=== PATIENT | male | born 1965 | race Caucasian/White ===

== ENCOUNTER → 2019-10-17 16:03 | Outpatient (CLI) | payer OTHER, SELFPAY ==
--- NOTE | 2019-10-17 | DI.RAD.S_ITS ---
PROCEDURE: XR CHEST 2V INDICATIONS: DYSPNEA TECHNIQUE: 2 views of the chest were acquired. COMPARISON: [facility], , CHEST 2 VIEW, 11/13/2013, 15:53. FINDINGS: Surgical changes and devices: None. Lungs and pleura: Lungs are clear. No pleural effusions or pneumothorax. Mediastinum: Mediastinal contours are normal. Heart size is normal. Bones and chest wall: No suspicious bony abnormalities. Soft tissues appear unremarkable. IMPRESSION: No acute cardiopulmonary disease process. Dictated by: Lisa Steel MD, PhD on 10/17/2019 at 17:51 Approved by: Lisa Steel MD, PhD on 10/17/2019 at 17:52
== END ==
PROVIDERS: PCP Nurse Practitioner Family; Visit Provider Nurse Practitioner Family
DX: R06.00 Dyspnea, unspecified (principal); Z72.0 Tobacco use; D72.1 Eosinophilia
CPT/HCPCS: 71046

== ENCOUNTER → 2021-06-29 09:49 | Outpatient (CLI) | payer BC, SELFPAY ==
[2021-06-29 11:39] LABS: BUN Creatinine Ratio 14.8 (6-22); Blood Urea Nitrogen 17 mg/dL (9-20); Estimated Glomerular Filt Rate > 60.0 mL/min (>60)
== END ==
PROVIDERS: PCP Family Medicine; Referring Provider Urology; Visit Provider Urology
DX: Z87.448 Personal history of other diseases of urinary system (principal)
CPT/HCPCS: 36415; 82565; 84520

== ENCOUNTER → 2021-07-01 13:27 | Outpatient (CLI) | payer BC, SELFPAY ==
--- NOTE | 2021-07-01 | DI.CT.S_ITS ---
PROCEDURE: CT ABDOMEN PELVIS WO/W CON INDICATIONS: Personal history of other diseases of urinary system TECHNIQUE: Optional 5 mm thick noncontrast images acquired from the diaphragm to the symphysis pubis. After the administration of intravenous contrast, 5 mm thick images acquired from the diaphragm to the symphysis pubis after a 10-minute delay. 2 mm thick coronal and sagittal reformats were then performed of the kidneys and ureters. For radiation dose reduction, the following was used: automated exposure control, adjustment of mA and/or kV according to patient size. COMPARISON: None. FINDINGS: Image quality: Excellent. Lung bases: Lung bases are clear. Heart size is normal. Urinary system: The patient has a horseshoe kidney. There is a 3.3 x 1.8 cm cystic lesion at the junction of both lower pole moieties. 1.3 cm and 1.4 cm cortical cysts are present in the upper to midpole of the left kidney, and subcentimeter cysts are present in the cortex of the right kidney. No definite solid masses. There is no hydronephrosis. A 1.2 x 0.6 cm stone is present in the right renal pelvis. Punctate stones are seen in both lower pole moieties. No hydroureter or ureteral calcifications. Decompressed urinary bladder is normal without stone. Other solid organs: Mild hepatomegaly and moderate to significant hepatic steatosis with sparing in the gallbladder fossa. The gallbladder is decompressed. No adrenal nodules. Normal size spleen. Normal pancreas. No biliary dilatation. Peritoneum and bowel: Diverticulosis throughout the sigmoid colon and occasionally throughout the remainder of the colon. There is a normal appendix. Stomach and bowel loops appear normal. No mesenteric masses. Nodes and vessels: Normal caliber vessels. No retroperitoneal adenopathy. Abdominal wall: No ventral hernias. Pelvis: No pathologic free pelvic fluid. No inguinal hernias or adenopathy. The prostate gland is normal size. Bones: Degenerative endplate changes in the thoracic spine and prominent anterior endplate spurring at the L5-S1 level in the lumbar spine. Moderate to severe right greater than left degenerative changes in the hip joints. IMPRESSION: 1. 1.2 x 0.6 cm nonobstructing calcification within the right renal pelvis. 2. Horseshoe kidney morphology with several small cortical cyst present. 3. Nonobstructing punctate lower pole calcifications bilaterally. 4. Hepatomegaly and hepatic steatosis. 5. Diverticulosis. 6. Hip joint degeneration. Progression on the right since the prior study. Dictated by: Mona Augustine M.D. on 07/01/2021 at 15:48 Approved by: Mona Augustine M.D. on 07/01/2021 at 16:27
== END ==
PROVIDERS: PCP Family Medicine; Referring Provider Urology; Visit Provider Urology
DX: N20.0 Calculus of kidney (principal); Q63.1 Lobulated, fused and horseshoe kidney; N28.1 Cyst of kidney, acquired; K76.0 Fatty (change of) liver, not elsewhere classified; M16.0 Bilateral primary osteoarthritis of hip; K57.30 Diverticulosis of large intestine without perforation or abscess without bleeding; Z87.448 Personal history of other diseases of urinary system
CPT/HCPCS: 74178; Q9967

== ENCOUNTER 2021-11-07 09:41 | Emergency (ER) | payer BC, SELFPAY ==
[2021-11-07] VITALS (9 sets, daily range): BP systolic 150–170; BP diastolic 67–77; PULSE 86–97; RESP 16; TEMP 37.8; O2SAT 92–95; BMI 36.6
--- NOTE | 2021-11-07 10:02 | DI.RAD.S_ITS ---
PROCEDURE: XR CHEST 1V INDICATIONS: suspected sepsis TECHNIQUE: One view of the chest was acquired. COMPARISON: [facility], CR, XR CHEST 2V, 10/17/2019, 16:20. FINDINGS: Surgical changes and devices: None. Lungs and pleura: Lungs are clear. No pleural effusions or pneumothorax. Mediastinum: Mediastinal contours appear normal. Heart size is normal. Bones and chest wall: No suspicious bony lesions. Overlying soft tissues appear unremarkable. IMPRESSION: No acute process. Dictated by: Ludmila Shaw M.D. on 11/07/2021 at 9:42 Approved by: Ludmila Shaw M.D. on 11/07/2021 at 9:42
[2021-11-07] MEDS: SODIUM CHLORIDE 0.9% 1,000 ML 1000 ML IV (10:10)
[2021-11-07 10:15] LABS: Add Manual Diff / Slide Review NO; Basophils Absolute Auto 100 /uL (0-100); Basophils Percent Auto 0.7 % (0-2); Eosinophils Absolute Auto 0 /uL (0-450); Hematocrit 38.6 % (41-53); Hemoglobin 13.1 g/dL (13.5-17.5); Lymphocytes Absolute Auto 1200 /uL (1100-4500); Lymphocytes Percent Auto 6.4 % (25-40); Mean Corpuscular HGB Conc 33.9 % (30-36); Mean Corpuscular Hemoglobin 29.8 PG (26-34); Mean Corpuscular Volume 88.1 fL (80-100); Monocytes Absolute Auto 1500 /uL (0-900); Monocytes Percent Auto 7.9 % (3-14); Neutrophils Absolute Auto 15800 /uL (1500-7000); Platelet Count 278 X10^3/uL (150-400); Red Blood Cell Count 4.38 X10^6/uL (4.5-5.9); Red Cell Distribution Width 12.8 % (11.6-14.8); White Blood Cell Count 18.6 X10^3/uL (4.5-11.0)
[2021-11-07 10:24] LABS: RBC Urine 10-30/HPF (0-5/HPF); Squamous Epithelial Cell Urine 0-1 /HPF (0-5/HPF); WBC Urine 10-30/HPF (0-5/HPF)
[2021-11-07 10:26] LABS: Lactate (Lactic Acid) 1.4 mmol/L (0.7-2.1)
[2021-11-07 10:27] LABS: Alanine Aminotransferase 27 IU/L (<50); Albumin 4.4 g/dL (3.5-5.0); Albumin Globulin Ratio 1.3 (1.0-2.8); Alkaline Phosphatase 53 U/L (38-126); Aspartate Aminotransferase 28 IU/L (17-59); BUN Creatinine Ratio 9.7 (6-22); Bilirubin Total 0.6 mg/dL (0.2-1.3); Blood Urea Nitrogen 14 mg/dL (9-20); Calcium 9.1 mg/dL (8.4-10.2); Carbon Dioxide 21 mmol/L (22-32); Chloride 95 mmol/L (98-107); Estimated Glomerular Filt Rate 50.6 mL/min (>60); Globulin 3.4 g/dL (1.7-4.1); Glucose 162 mg/dL (70-100); HEMOLYSIS < 15 (0-50); Lipase 23 U/L (23-300); Potassium 3.9 mmol/L (3.4-5.1); Sodium 126 mmol/L (137-145); Total Protein 7.8 g/dL (6.3-8.2)
--- NOTE | 2021-11-07 10:34 | ED_ITS ---
HPI - Male Genitourinary General Chief complaint: Urogenital-Male Stated complaint: Kidney infection post surgery 10/28 Time Seen by Provider: 11/07/21 09:50 Source: patient Mode of arrival: Ambulatory History of Present Illness HPI Narrative: The patient underwent lithotripsy for right kidney stone 10/28/2021. A right ureter stent is in place. The patient developed right flank pain, abdominal pain, with nausea vomiting 3 days ago. He has had fever for about 2 days. He has dysuria. He denies hematuria. He has no URI symptoms. He has no sore throat. He has no cough or dyspnea. Along with nephrolithiasis, he has comorbidities of type 2 diabetes and prostate disease. Related Data Previous Rx's Medication Instructions Recorded ketorolac 10 mg tablet 10 mg PO Q8HP PRN #12 tab 11/01/16 oxycodone 5 mg tablet 5 mg PO Q6HP PRN #12 tab 11/01/16 sulfamethoxazole 800 1 tab PO Q12H 10 Days #20 tab 11/07/21 mg-trimethoprim 160 mg tablet Allergies Allergy/AdvReac Type Severity Reaction Status Date / Time Penicillins Allergy Mild RASH Verified 11/07/21 09:49 hydrocodone AdvReac Nausea Verified 11/07/21 09:50 tape Allergy Mild itchy/rash Uncoded 03/08/18 12:57 Review of Systems Constitutional Constitutional: Reports body ache(s), Denies chills, Reports fever(s), Denies headache(s) and Reports malaise ENT Ears, Nose, Mouth, and Throat: Denies dizziness, Denies headache(s) and Denies sore throat Cardiovascular Cardiovascular: Denies chest pain, Denies syncope, Denies rapid heart rate and Denies dyspnea Respiratory Respiratory: Denies cough and Denies dyspnea Gastrointestinal Gastrointestinal: Reports as per HPI Genitourinary Genitourinary: Reports as per HPI Musculoskeletal Musculoskeletal: Reports back pain and Reports myalgias Integumentary/Breasts Skin/Breast: Denies lesions and Denies rash Neurologic Neurologic: Denies confusion, Denies dizziness, Denies syncope and Denies headache(s) Psychiatric Psychiatric: Denies confusion and Denies depression Endocrine Endocrine: Denies polydipsia and Denies polyuria Hematologic/Lymphatic On Anticoagulants: No Patient History Medical History Controlled type 2 diabetes mellitus (01/13/16) Hyperplastic colonic polyp (07/01/14) Nephrolithiasis Obesity (10/27/11) Prostate hypertrophy (04/24/14) Smoker (10/27/11) Surgical History Status post colonoscopy (06/27/14) Status post discectomy Family History Brother Hyperlipidemia Alcohol abuse Father Cancer of prostate CAD (coronary artery disease) Pacemaker Ulcer Mother Smoker CAD (coronary artery disease) Social History Smoking Status: Current every day smoker Smoking Status: Current every day smoker alcohol intake frequency: holidays/special occasions only Substance Use Type: does not use Exam Initial Vital Signs Initial Vital Signs: Vital Signs Temperature 100.1 F H 11/07/21 09:48 Pulse Rate 97 H 11/07/21 09:48 Respiratory Rate 16 11/07/21 09:48 Blood Pressure 170/77 H 11/07/21 09:48 Pulse Oximetry 95 11/07/21 09:48 Const General: cooperative, well developed, well groomed and ill appearing [facility] Head: normocephalic and atraumatic Face and sinus: normal facial exam and sinuses nontender Throat: posterior oropharynx normal Eyes General: appearance normal, both eyes and all related structures Pupils: PERRL EOM: EOM intact bilaterally Neck Neck: full ROM and No lymphadenopathy Chest Chest: normal inspection of the chest Resp Auscultation: clear to auscultation bilaterally Cardio Rate: regular rate Rhythm: regular rhythm Heart Sounds: S1 normal, S2 normal, no murmurs and no rubs GI Inspection: obesity Palpation: soft, No mass and No tender Auscultation: normal bowel sounds Back/Spine/Pelvis Back: CVA tenderness right Skin General: no rashes or lesions noted Neuro General: patient alert, patient oriented x3 and no focal motor deficits Extrem General: normal to inspection, no pedal edema and no calf tenderness Course Course Course Narrative: The patient has a urinary tract infection with the stent in place. He has fever with right CVAT. He was given IV Levaquin. He is given IV fluids. He is feeling much better the time of discharge. Urine cultures pending. He was discharged on Septra DS. He has follow-up with Urology in about 10 days. Orders Ordered: ED Orders 11/07/21 09:55 Urine Culture Stat Urine Microscopic Stat 11/07/21 10:00 Complete Blood Count AUTO DIFF Stat Comprehensive Metabolic Panel Stat Lactate (Lactic Acid) Stat Lipase Stat Procalcitonin Stat 11/07/21 10:02 XR chest 1V Stat RT Consult Eval and Treat NOW 11/07/21 10:25 Blood Culture Stat Discontinued Medications Hydromorphone HCl (Hydromorphone 1 Mg Inj) 1 mg IV NOW ONE Stop: 11/07/21 10:33 Last Admin: 11/07/21 10:40 Dose: 1 mg Documented by: DARRON Sodium Chloride (Normal Saline 0.9%) 1,000 mls @ 1,000 mls/hr IV BOLUS ONE Stop: 11/07/21 11:01 Last Infusion: 11/07/21 11:36 Dose: 0 mls/hr Documented by: Admin: 11/07/21 10:10 Dose: 1,000 mls/hr Documented by: ANIBAL Levofloxacin (Levaquin) 500 mg in 100 mls @ 100 mls/hr IV NOW ONE Stop: 11/07/21 11:31 Last Infusion: 11/07/21 12:00 Dose: 0 mls/hr Documented by: Admin: 11/07/21 10:40 Dose: 100 mls/hr Documented by: DARRON Ondansetron HCl (Ondansetron 4 Mg/2 Ml Inj) 4 mg IV NOW ONE Stop: 11/07/21 10:33 Last Admin: 11/07/21 10:40 Dose: 4 mg Documented by: DARRON Vital Signs Vital signs: Vital Signs - 8 hr 11/07/21 09:48 11/07/21 10:48 11/07/21 10:51 Temperature 100.1 F H Pulse Rate 97 H 93 H 93 H Respiratory Rate 16 Blood Pressure 170/77 H 156/69 H Pulse Oximetry 95 95 93 11/07/21 11:00 11/07/21 11:30 11/07/21 12:00 Temperature Pulse Rate 88 86 90 Respiratory Rate Blood Pressure Pulse Oximetry 11/07/21 12:30 11/07/21 13:00 11/07/21 13:50 Temperature 100.0 F H Pulse Rate 86 87 Respiratory Rate Blood Pressure 150/67 H Pulse Oximetry 93 92 MDM - Male Genitourinary Lab Data Result diagrams: 11/07/21 10:00 11/07/21 10:00 Labs: Lab Results 11/07/21 11/07/21 11/07/21 Range/Units 09:55 10:00 10:00 WBC 18.6 H (4.5-11.0) X10^3/uL RBC 4.38 L (4.5-5.9) X10^6/uL Hgb 13.1 L (13.5-17.5) g/dL Hct 38.6 L (41-53) % MCV 88.1 (80-100) fL MCH 29.8 (26-34) PG MCHC 33.9 (30-36) % RDW 12.8 (11.6-14.8) % Plt Count 278 (150-400) X10^3/uL Neut % (Auto) 85.0 H (50-75) % Lymph % (Auto) 6.4 L (25-40) % [place] % (Auto) 7.9 (3-14) % Eos % (Auto) 0.0 L (2-4) % Baso % (Auto) 0.7 (0-2) % Neut # (Auto) 90964 H (9467-4294) /uL Lymph # (Auto) 1200 (2443-1830) /uL [place] # (Auto) 1500 H (0-900) /uL Eos # (Auto) 0 (0-450) /uL Baso # (Auto) 100 (0-100) /uL Sodium 126 L (137-145) mmol/L Potassium 3.9 (3.4-5.1) mmol/L Chloride 95 L (98-107) mmol/L Carbon Dioxide 21 L (22-32) mmol/L BUN 14 (9-20) mg/dL Creatinine 1.44 H (0.66-1.25) mg/dL Estimated GFR 50.6 L (>60) mL/min BUN/Creatinine Ratio 9.7 (6-22) Glucose 162 H (70-100) mg/dL Lactate (0.7-2.1) mmol/L Calcium 9.1 (8.4-10.2) mg/dL Total Bilirubin 0.6 (0.2-1.3) mg/dL AST 28 (17-59) IU/L ALT 27 (<50) IU/L Alkaline Phosphatase 53 (38-126) U/L Total Protein 7.8 (6.3-8.2) g/dL Albumin 4.4 (3.5-5.0) g/dL Globulin 3.4 (1.7-4.1) g/dL Albumin/Globulin Ratio 1.3 (1.0-2.8) Lipase 23 (23-300) U/L Procalcitonin 2.63 H (<0.5) ng/mL Urine RBC 10-30/hpf H (0-5/HPF) Urine WBC 10-30/hpf H (0-5/HPF) Ur Squamous Epith Cells 0-1 /hpf (0-5/HPF) Urine Bacteria Moderate (10-30) H (None) Ur Culture Indicated? Specimen cultured 11/07/21 Range/Units 10:00 WBC (4.5-11.0) X10^3/uL RBC (4.5-5.9) X10^6/uL Hgb (13.5-17.5) g/dL Hct (41-53) % MCV (80-100) fL MCH (26-34) PG MCHC (30-36) % RDW (11.6-14.8) % Plt Count (150-400) X10^3/uL Neut % (Auto) (50-75) % Lymph % (Auto) (25-40) % [place] % (Auto) (3-14) % Eos % (Auto) (2-4) % Baso % (Auto) (0-2) % Neut # (Auto) (1712-8496) /uL Lymph # (Auto) (8167-5498) /uL [place] # (Auto) (0-900) /uL Eos # (Auto) (0-450) /uL Baso # (Auto) (0-100) /uL Sodium (137-145) mmol/L Potassium (3.4-5.1) mmol/L Chloride (98-107) mmol/L Carbon Dioxide (22-32) mmol/L BUN (9-20) mg/dL Creatinine (0.66-1.25) mg/dL Estimated GFR (>60) mL/min BUN/Creatinine Ratio (6-22) Glucose (70-100) mg/dL Lactate 1.4 (0.7-2.1) mmol/L Calcium (8.4-10.2) mg/dL Total Bilirubin (0.2-1.3) mg/dL AST (17-59) IU/L ALT (<50) IU/L Alkaline Phosphatase (38-126) U/L Total Protein (6.3-8.2) g/dL Albumin (3.5-5.0) g/dL Globulin (1.7-4.1) g/dL Albumin/Globulin Ratio (1.0-2.8) Lipase (23-300) U/L Procalcitonin (<0.5) ng/mL Urine RBC (0-5/HPF) Urine WBC (0-5/HPF) Ur Squamous Epith Cells (0-5/HPF) Urine Bacteria (None) Ur Culture Indicated? Urine Dip Bedside Urine Glucose Negative Bedside Urine Bilirubin - Negative Bedside Urine Ketone - Negative Urine Specific [place] 1.030 Bedside Urine Occult Blood +++ Bedside Urine pH 6.0 Bedside Urine Protein ++ 100 Bedside Urine Urobilinogen 0.2 Bedside Urine Nitrite - Negative Bedside Urine Leukocytes + 70 Esterase Imaging Data Chest x-ray: Radiologist's Impression: No acute process Discharge Plan Departure Patient Disposition: Home Clinical Impression: Acute pyelonephritis, Controlled type 2 diabetes mellitus, Renal insufficiency Instructions: DI for Kidney Infection Activity Restrictions/Additional Instructions: Septra DS 2 times daily for 10 days. Be sure you are drinking plenty of fluids. Follow-up with your doctor as scheduled. Return here for increasing pain or fever. Prescriptions: New sulfamethoxazole-trimethoprim 800-160 mg tablet 1 tab PO Q12H 10 Days Qty: 20 0RF No Action ketorolac 10 MG tablet 10 mg PO Q8HP PRNQty: 12 0RF oxycodone 5 MG tablet 5 mg PO Q6HP PRNQty: 12 0RF Referrals: Roby Zamora MD [Primary Care Provider] -
[2021-11-07] MEDS: HYDROMORPHONE 1 MG INJ IV (10:40)
[2021-11-07] MEDS: levoFLOXacin 500 MG/100 ML PIGGYBACK 100 MG IV (10:40)
[2021-11-07] MEDS: ONDANSETRON 4 MG/2 ML INJ IV (10:40)
[2021-11-07 10:44] LABS: Procalcitonin 2.63 ng/mL (<0.5)
[2021-11-07 10:49] LABS: Bacteria Urine Moderate (10-30); Culture Indicated Urine Specimen Cultured
== END 2021-11-07 13:55 | disposition home or self-care (01) ==
PROVIDERS: Emergency Provider Emergency Medicine; PCP Family Medicine
DX: N10 Acute pyelonephritis (principal); E11.9 Type 2 diabetes mellitus without complications; N28.9 Disorder of kidney and ureter, unspecified; F17.200 Nicotine dependence, unspecified, uncomplicated
CPT/HCPCS: 36415; 71045; 80053; 81003; 81015; 83605; 83690; 84145; 85025; 87040; 87077; 87086; 99284; J1170; J1956; J2405

== ENCOUNTER 2021-11-08 10:07 | Inpatient (IN) | payer OTHER, SELFPAY ==
[2021-11-08] VITALS (17 sets, daily range): BP systolic 110–148; BP diastolic 49–90; PULSE 18–93; RESP 16–24; TEMP 36–39.4; O2SAT 91–98; BMI 36.6
[2021-11-08 10:59] LABS: Add Manual Diff / Slide Review NO; Basophils Absolute Auto 100 /uL (0-100); Basophils Percent Auto 0.7 % (0-2); Eosinophils Absolute Auto 0 /uL (0-450); Hematocrit 36.5 % (41-53); Hemoglobin 12.7 g/dL (13.5-17.5); Lymphocytes Absolute Auto 1100 /uL (1100-4500); Lymphocytes Percent Auto 5.4 % (25-40); Mean Corpuscular HGB Conc 34.8 % (30-36); Mean Corpuscular Hemoglobin 30.3 PG (26-34); Monocytes Absolute Auto 1800 /uL (0-900); Monocytes Percent Auto 8.9 % (3-14); Neutrophils Absolute Auto 17000 /uL (1500-7000); Platelet Count 241 X10^3/uL (150-400); Red Cell Distribution Width 12.8 % (11.6-14.8)
[2021-11-08] MEDS: ONDANSETRON 4 MG/2 ML INJ IV ×3 (11:03→18:05)
[2021-11-08 11:14] LABS: Alanine Aminotransferase 32 IU/L (<50); Albumin 3.9 g/dL (3.5-5.0); Albumin Globulin Ratio 1.1 (1.0-2.8); Alkaline Phosphatase 48 U/L (38-126); Aspartate Aminotransferase 41 IU/L (17-59); Bilirubin Total 0.7 mg/dL (0.2-1.3); Blood Urea Nitrogen 15 mg/dL (9-20); Calcium 8.8 mg/dL (8.4-10.2); Carbon Dioxide 23 mmol/L (22-32); Chloride 89 mmol/L (98-107); Estimated Glomerular Filt Rate 48.2 mL/min (>60); Globulin 3.5 g/dL (1.7-4.1); Glucose 158 mg/dL (70-100); HEMOLYSIS < 15 (0-50); Lipase 19 U/L (23-300); Sodium 121 mmol/L (137-145); Total Protein 7.4 g/dL (6.3-8.2)
--- NOTE | 2021-11-08 11:14 | DI.CT.S_ITS ---
PROCEDURE: CT KIDNEY URETER BLADDER (KUB) INDICATIONS: Probable pyelonephritis. Horseshoe kidney. TECHNIQUE: Axial sections were acquired from the lung bases to the pubic symphysis. Coronal and sagittal reformats were performed. For radiation dose reduction, the following was used: automated exposure control, adjustment of mA and/or kV according to patient size. COMPARISON: [facility], CT, CT ABDOMEN PELVIS WO/W CON, 07/01/2021, 13:32. [facility], CT, KIDNEY/ URETER/BLADDER, 11/01/2016, 19:25. FINDINGS: Image quality: Excellent. Lung bases: Unremarkable. Heart: No significant findings. URINARY: Horseshoe kidney is present, as before. There is new moderate fat stranding surrounding the right moiety of the horseshoe kidney. Multiple nonobstructing calculi within the inferior aspects of the bilateral renal moieties. Right ureteral stent is present, which demonstrates a redundant loop within the right renal moiety. Bladder: Normal wall thickness. No stones. ABDOMEN: Liver: Liver is enlarged and demonstrates diffusely increased echogenicity, as before. Gallbladder: Unremarkable. Biliary ducts: Unremarkable. Pancreas: Unremarkable. Spleen: Unremarkable. Adrenal Glands: Unremarkable. Stomach and Bowel: Stomach, small bowel loops, and colon are unremarkable. Normal appendix. Peritoneum: No abnormal intraperitoneal fluid. No free air. Ventral Wall: No hernia. Abdominal Nodes: No enlarged retroperitoneal or mesenteric lymph nodes. Vessels: Aorta and inferior vena cava are normal in size. PELVIS: Pelvic Organs: Unremarkable. Pelvic Nodes: Unremarkable. Miscellaneous: No inguinal hernias are seen. Bones: Unremarkable. IMPRESSION: 1. Fat stranding surrounding the right moiety of the horseshoe kidney, possibly indicating infection. 2. Calculi within the bilateral renal moieties. 3. Hepatic steatosis. 4. Normal appendix. Dictated by: Ludmila Shaw M.D. on 11/08/2021 at 10:32 Approved by: Ludmila Shaw M.D. on 11/08/2021 at 10:35
--- NOTE | 2021-11-08 11:20 | ED_ITS ---
HPI - Abdominal Pain General Chief Complaint: Abdominal Pain Stated Complaint: Kidney infection Time Seen by Provider: 11/08/21 10:54 Source: patient Mode of arrival: Ambulatory Limitations: no limitations History of Present Illness HPI narrative: The patient underwent lithotripsy 12/18. He has a right ureter stent in place. He is diabetic. He has a history of kidney stones with stent in place. He has a horseshoe kidney. He was seen yesterday with abdominal pain, right back pain. I gave him IV Levaquin as well as pain medications. He was on notably better. He was discharged home. He apparently was doing well until about 7:00 p.m. last night when abdominal pain, nausea and vomiting returned. He complains of ongoing fever. In addition urinary complaints, chest x-ray was evaluated yesterday and was negative. Related Data Home Medications Medication Instructions Recorded Confirmed finasteride 5 mg tablet 5 mg PO BID 11/08/21 11/08/21 gabapentin 600 mg tablet 600 mg PO BID 11/08/21 11/08/21 glipizide 5 mg tablet, extended 5 mg PO DAILY 11/08/21 11/08/21 release 24 hr metformin 500 mg tablet,extended 500 mg PO BID 11/08/21 11/08/21 release 24 hr nortriptyline 25 mg capsule 25 mg PO BID 11/08/21 11/08/21 phenazopyridine 200 mg tablet 200 mg PO BID 11/08/21 11/08/21 tamsulosin 0.4 mg capsule 0.4 mg PO BID 11/08/21 11/08/21 Previous Rx's Medication Instructions Recorded ketorolac 10 mg tablet 10 mg PO Q8HP PRN #12 tab 11/01/16 oxycodone 5 mg tablet 5 mg PO Q6HP PRN #12 tab 11/01/16 sulfamethoxazole 800 1 tab PO Q12H 10 Days #20 tab 11/07/21 mg-trimethoprim 160 mg tablet Allergies Allergy/AdvReac Type Severity Reaction Status Date / Time Penicillins Allergy Mild RASH Verified 11/07/21 09:49 hydrocodone AdvReac Nausea Verified 11/07/21 09:50 tape Allergy Mild itchy/rash Uncoded 03/08/18 12:57 Review of Systems Constitutional Constitutional: Reports as per HPI, Reports body ache(s), Reports chills, Denies fatigue, Reports fever(s) and Denies headache(s) Eyes Eyes: Denies change in vision Comments: No eye complaints ENT Ears, Nose, Mouth, and Throat: Denies dizziness, Denies headache(s), Denies sinus pressure and Denies sore throat Cardiovascular Cardiovascular: Denies chest pain, Denies rapid heart rate and Denies dyspnea Respiratory Respiratory: Denies cough and Denies dyspnea Gastrointestinal Gastrointestinal: Reports abdominal pain, Denies constipation, Reports nausea and Reports vomiting Genitourinary Comments: Normal urine output. No hematuria. Musculoskeletal Musculoskeletal: Reports as per HPI and Reports back pain Integumentary/Breasts Skin/Breast: Denies lesions and Denies rash Neurologic Neurologic: Denies confusion, Denies dizziness and Denies headache(s) Psychiatric Psychiatric: Reports anxiety and Denies confusion Endocrine Endocrine: Denies fatigue Hematologic/Lymphatic On Anticoagulants: No Patient History Medical History Controlled type 2 diabetes mellitus (01/13/16) Hyperplastic colonic polyp (07/01/14) Nephrolithiasis Obesity (10/27/11) Prostate hypertrophy (04/24/14) Smoker (10/27/11) Surgical History Status post colonoscopy (06/27/14) Status post discectomy Family History Brother Hyperlipidemia Alcohol abuse Father Cancer of prostate CAD (coronary artery disease) Pacemaker Ulcer Mother Smoker CAD (coronary artery disease) Social History household members: spouse Smoking Status: Current every day smoker Smoking Status: Current every day smoker alcohol intake frequency: holidays/special occasions only Substance Use Type: does not use Exam Initial Vital Signs Initial Vital Signs: Vital Signs Pulse Rate 91 H 11/08/21 10:29 Pulse Oximetry 95 11/08/21 10:29 Const General: cooperative Orientation: Orientation (x3) Other: The patient is nontoxic, but appears uncomfortable. HENMT Head: normocephalic and atraumatic Throat: posterior oropharynx normal Eyes Conjunctivae: conjunctivae normal Sclera: sclerae normal Other: No icterus Neck Neck: full ROM and No lymphadenopathy Chest Chest: normal inspection of the chest Resp Effort & Inspection: normal respiratory effort Auscultation: clear to auscultation bilaterally Cardio Rate: regular rate Rhythm: regular rhythm Heart Sounds: S1 normal and S2 normal GI Inspection: obesity Palpation: soft, No guarding and No tender Auscultation: normal bowel sounds Other: Obese. No significant tenderness. No distension. No masses. Normal bowel sounds. Back/Spine/Pelvis Back: CVA tenderness right Skin General: no rashes or lesions noted Neuro General: patient alert, patient awake and patient oriented x3 Extrem General: normal to inspection, full ROM, no pedal edema and no calf tenderness Psych Mental Status: mental status grossly normal Course Course Course Narrative: Although urine cultures do not support urinary tract infection at this time, the patient's WBC count is increased to 20, higher than yesterday. CT revealed the horseshoe kidney, multiple stones, and the right ureter stent. There were also findings consistent with pyelonephritis. Levaquin was repeated. I discussed the case with the hospitalist, Dr. Lopez, she has accepted the patient on her service. Orders Ordered: ED Orders 11/08/21 10:38 Complete Blood Count AUTO DIFF Stat Comprehensive Metabolic Panel Stat Lipase Stat 11/08/21 10:45 EKG-12 Lead Stat 11/08/21 11:14 CT kidney ureter bladder (KUB) Stat 11/08/21 11:39 Urine Culture Stat Urine Microscopic Stat 11/08/21 11:49 COVID19 - ADMIT (DIRECTOR OF REAL ESTATE swab/PCR) Stat 11/08/21 12:20 Blood Culture Stat Lactate (Lactic Acid) Stat Discontinued Medications Hydromorphone HCl (Hydromorphone 1 Mg Inj) 1 mg IV NOW ONE Stop: 11/08/21 11:24 Last Admin: 11/08/21 11:50 Dose: 1 mg Documented by: KANG Sodium Chloride (Normal Saline 0.9%) 1,000 mls @ 1,000 mls/hr IV BOLUS ONE Stop: 11/08/21 12:13 Last Infusion: 11/08/21 12:43 Dose: 0 mls/hr Documented by: Admin: 11/08/21 11:21 Dose: 1,000 mls/hr Documented by: KANG Levofloxacin (Levaquin) 500 mg in 100 mls @ 100 mls/hr IV NOW ONE Stop: 11/08/21 13:07 Last Infusion: 11/08/21 13:36 Dose: 0 mls/hr Documented by: Admin: 11/08/21 12:14 Dose: 100 mls/hr Documented by: KANG Ondansetron HCl (Ondansetron 4 Mg/2 Ml Inj) 4 mg IV NOW ONE Stop: 11/08/21 10:46 Last Admin: 11/08/21 11:03 Dose: 4 mg Documented by: KANG Ondansetron HCl (Ondansetron 4 Mg/2 Ml Inj) 4 mg IV NOW ONE Stop: 11/08/21 11:24 Last Admin: 11/08/21 11:50 Dose: 4 mg Documented by: KANG Vital Signs Vital signs: Vital Signs - 8 hr 11/08/21 10:29 11/08/21 10:30 11/08/21 10:35 Temperature 98.9 F Pulse Rate 91 H 86 88 Respiratory Rate 18 Blood Pressure 122/58 L 125/58 L Pulse Oximetry 95 95 98 11/08/21 11:00 11/08/21 11:31 11/08/21 11:48 Temperature 98.9 F Pulse Rate 93 H 26 L 86 Respiratory Rate 24 21 Blood Pressure 116/63 120/55 L Pulse Oximetry 91 95 95 11/08/21 12:00 11/08/21 12:30 Temperature Pulse Rate 92 H 92 H Respiratory Rate 23 20 Blood Pressure 130/64 133/62 Pulse Oximetry 94 95 MDM - Abdominal Pain Lab Data Result diagrams: 11/08/21 10:38 11/08/21 10:38 Labs: Lab Results 11/08/21 11/08/21 11/08/21 Range/Units 10:38 10:38 11:39 WBC 20.0 H (4.5-11.0) X10^3/uL RBC 4.20 L (4.5-5.9) X10^6/uL Hgb 12.7 L (13.5-17.5) g/dL Hct 36.5 L (41-53) % MCV 87.0 (80-100) fL MCH 30.3 (26-34) PG MCHC 34.8 (30-36) % RDW 12.8 (11.6-14.8) % Plt Count 241 (150-400) X10^3/uL Neut % (Auto) 85.0 H (50-75) % Lymph % (Auto) 5.4 L (25-40) % [place] % (Auto) 8.9 (3-14) % Eos % (Auto) 0.0 L (2-4) % Baso % (Auto) 0.7 (0-2) % Neut # (Auto) 64679 H (6685-0935) /uL Lymph # (Auto) 1100 (1924-7016) /uL [place] # (Auto) 1800 H (0-900) /uL Eos # (Auto) 0 (0-450) /uL Baso # (Auto) 100 (0-100) /uL Sodium 121 L (137-145) mmol/L Potassium 4.0 (3.4-5.1) mmol/L Chloride 89 L (98-107) mmol/L Carbon Dioxide 23 (22-32) mmol/L BUN 15 (9-20) mg/dL Creatinine 1.50 H (0.66-1.25) mg/dL Estimated GFR 48.2 L (>60) mL/min BUN/Creatinine Ratio 10.0 (6-22) Glucose 158 H (70-100) mg/dL Lactate (0.7-2.1) mmol/L Calcium 8.8 (8.4-10.2) mg/dL Total Bilirubin 0.7 (0.2-1.3) mg/dL AST 41 (17-59) IU/L ALT 32 (<50) IU/L Alkaline Phosphatase 48 (38-126) U/L Total Protein 7.4 (6.3-8.2) g/dL Albumin 3.9 (3.5-5.0) g/dL Globulin 3.5 (1.7-4.1) g/dL Albumin/Globulin Ratio 1.1 (1.0-2.8) Lipase 19 L (23-300) U/L Urine RBC 1-5/hpf D (0-5/HPF) Urine WBC 10-30/hpf H (0-5/HPF) Ur Squamous Epith Cells 0-1 /hpf (0-5/HPF) Amorphous Sediment 1+ Urine Bacteria Few (2-10) H (None) Ur Culture Indicated? Culture not indicate SARS-CoV-2 (PCR) (Negative) 11/08/21 11/08/21 Range/Units 11:49 12:20 WBC (4.5-11.0) X10^3/uL RBC (4.5-5.9) X10^6/uL Hgb (13.5-17.5) g/dL Hct (41-53) % MCV (80-100) fL MCH (26-34) PG MCHC (30-36) % RDW (11.6-14.8) % Plt Count (150-400) X10^3/uL Neut % (Auto) (50-75) % Lymph % (Auto) (25-40) % [place] % (Auto) (3-14) % Eos % (Auto) (2-4) % Baso % (Auto) (0-2) % Neut # (Auto) (7984-8618) /uL Lymph # (Auto) (5791-4562) /uL [place] # (Auto) (0-900) /uL Eos # (Auto) (0-450) /uL Baso # (Auto) (0-100) /uL Sodium (137-145) mmol/L Potassium (3.4-5.1) mmol/L Chloride (98-107) mmol/L Carbon Dioxide (22-32) mmol/L BUN (9-20) mg/dL Creatinine (0.66-1.25) mg/dL Estimated GFR (>60) mL/min BUN/Creatinine Ratio (6-22) Glucose (70-100) mg/dL Lactate 0.7 (0.7-2.1) mmol/L Calcium (8.4-10.2) mg/dL Total Bilirubin (0.2-1.3) mg/dL AST (17-59) IU/L ALT (<50) IU/L Alkaline Phosphatase (38-126) U/L Total Protein (6.3-8.2) g/dL Albumin (3.5-5.0) g/dL Globulin (1.7-4.1) g/dL Albumin/Globulin Ratio (1.0-2.8) Lipase (23-300) U/L Urine RBC (0-5/HPF) Urine WBC (0-5/HPF) Ur Squamous Epith Cells (0-5/HPF) Amorphous Sediment Urine Bacteria (None) Ur Culture Indicated? SARS-CoV-2 (PCR) Negative (Negative) Point of care testing: Urine Dip Bedside Urine Glucose Negative Bedside Urine Bilirubin - Negative Bedside Urine Ketone +/- 5 Urine Specific [place] 1.015 Bedside Urine Occult Blood +++ Bedside Urine pH 6 Bedside Urine Protein ++ 100 Bedside Urine Urobilinogen - Negative Bedside Urine Nitrite - Negative Bedside Urine Leukocytes + 70 Esterase Imaging Data KUB CT: Radiologist's Impression: Launch?Image [address] [address] [address] Scan Report Signed Patient: Shaheed Negron MR#: [id number] : 1965 Acct:[id number] Age/Sex: 55 / M Date of Service: 11/08/21 Loc: ED Accession Number: [id number] ?? Procedure: CT kidney ureter bladder (KUB) Ordering Provider: Len Simpson MD PROCEDURE:? CT KIDNEY URETER BLADDER (KUB) ? INDICATIONS:? Probable pyelonephritis.? Horseshoe kidney. ? TECHNIQUE:? Axial sections were acquired from the lung bases to the pubic symphysis.? Coronal and sagittal reformats were performed.? For radiation dose reduction, the following was used: ?automated exposure control, adjustment of mA and/or kV according to patient size.? ? COMPARISON:? [facility], CT, CT ABDOMEN PELVIS WO/W CON, 07/01/2021, 13:32.? [facility], CT, KIDNEY/ URETER/BLADDER, 11/01/2016, 19:25. ? FINDINGS:? Image quality:? Excellent.? ? Lung bases:? Unremarkable.? ? Heart:? No significant findings. ? URINARY:? Horseshoe kidney is present, as before.? There is new moderate fat stranding surrounding the right moiety of the horseshoe kidney.? Multiple nonobstructing calculi within the inferior aspects of the bilateral renal moieties.? Right ureteral stent is present, which demonstrates a redundant loop within the right renal moiety. ? Bladder:? Normal wall thickness. No stones. ? ? ? ABDOMEN: Liver:? Liver is enlarged and demonstrates diffusely increased echogenicity, as before. Gallbladder:? Unremarkable.? ? Biliary ducts:? Unremarkable.? ? Pancreas:? Unremarkable.? ? Spleen:? Unremarkable.? ? Adrenal Glands:? Unremarkable.? ? ? Stomach and Bowel:? Stomach, small bowel loops, and colon are unremarkable.? Normal appendix. Peritoneum:? No abnormal intraperitoneal fluid.? No free air.? ? Ventral Wall: ? No hernia.? Abdominal Nodes:? No enlarged retroperitoneal or mesenteric lymph nodes.? Vessels:? Aorta and inferior vena cava are normal in size.? ? PELVIS: Pelvic Organs:? Unremarkable.? ? Pelvic Nodes: Unremarkable. Miscellaneous: No inguinal hernias are seen. ? ? ? Bones:? Unremarkable. ? IMPRESSION:? ? 1. Fat stranding surrounding the right moiety of the horseshoe kidney, possibly indicating infection. 2. Calculi within the bilateral renal moieties. 3. Hepatic steatosis. 4. Normal appendix. ? ? ? Dictated by: Ludmila Shaw M.D. on 11/08/2021 at 10:32 ? ? Approved by: Ludmila Shaw M.D. on 11/08/2021 at 10:35 ? ECG Data Attestation: I personally reviewed and interpreted this ECG as follows: (Normal sinus rhythm rate 94 beats per minute. Normal intervals. No ectopy. No acute ST T wave changes.) Critical Care Time Critical Care Time Critical Care Time: Yes Total Critical Care Time: 40 Attestation: Time includes initial assessment patient, review of his records, and review of Radiology, lab in EKG data. Multiple clinical decisions were made. The clinical situation discussed with the patient. The case was discussed with the admitting hospitalist. Discharge Plan Departure Patient Disposition: Admitted As Inpatient Clinical Impression: Acute pyelonephritis, Nephrolithiasis, Renal insufficiency, Controlled type 2 diabetes mellitus Admit Date/Time: 11/08/21 12:58 Admit Provider: Georgette Lopez
[2021-11-08] MEDS: SODIUM CHLORIDE 0.9% 1,000 ML 1000 ML IV (11:21)
[2021-11-08] MEDS: HYDROMORPHONE 1 MG INJ IV (11:50)
[2021-11-08 11:59] LABS: Amorphous Sediment Urine 1+; Bacteria Urine Few (2-10); RBC Urine 1-5/HPF (0-5/HPF); Squamous Epithelial Cell Urine 0-1 /HPF (0-5/HPF); WBC Urine 10-30/HPF (0-5/HPF)
[2021-11-08] MEDS: levoFLOXacin 500 MG/100 ML PIGGYBACK 100 MG IV (12:14)
[2021-11-08 12:44] LABS: Lactate (Lactic Acid) 0.7 mmol/L (0.7-2.1)
[2021-11-08 12:50] LABS: COVID19 - ADMIT (NP swab/PCR) Negative (Negative)
--- NOTE | 2021-11-08 16:40 | DI.US.S_ITS ---
PROCEDURE: US ABDOMEN LIMITED INDICATIONS: RIGHT UPPER QUADRANT PAIN TECHNIQUE: Real-time focused scanning was performed of the abdomen, with image documentation. COMPARISON: None. FINDINGS: Exam is limited by the patient body habitus and the degree of hepatic steatosis. Markedly increased hepatic parenchymal echogenicity with poor visualization of the deep field as a result of the sound attenuation by the liver. There is a cyst in the right hepatic lobe deep aspect measuring approximately 3 centimeters. Otherwise limited evaluation of the liver. The gallbladder is normally distended with no wall thickening or pericholecystic fluid. No sludge or gallstone identified. The pancreas and extrahepatic biliary ducts are not well seen due to the above limitations. IMPRESSION: Limited study due to body habitus and the severe degree of hepatic steatosis. Normal gallbladder. Dictated by: Austyn Boucher M.D. on 11/09/2021 at 8:41 Approved by: Austyn Boucher M.D. on 11/09/2021 at 8:43
--- NOTE | 2021-11-08 16:48 | PM.HP.1 ---
History of Present Illness History of Present Illness Date Patient Seen: 11/08/21 Time Patient Seen: 16:49 Chief complaint: Kidney infection Narrative: The patient is a 55-year-old male with a history of type 2 diabetes, nephrolithiasis, obesity, benign prostatic hypertrophy, who underwent lithotripsy with ureteral stent placement 11 days ago. Patient is known to have a horseshoe kidney. Presented to the emergency room yesterday with fever nausea vomiting and malaise. UA was positive. Patient was given levofloxacin in the emergency department and discharged home on oral antibiotics. He states he was well until last evening at 7:00 p.m. when he again developed nonproductive cough, nausea and vomiting, diarrhea, and abdominal pain. Patient reports it to having dark emesis, he also reports having black stool. He has been febrile to over 102. His reports he has had shaking chills. He has not been able to eat since Tuesday, 5 days prior to admission. The patient was evaluated in the emergency room. His white count is markedly elevated at 20, his creatinine has increased to 1.5 from his baseline, urine appears infected and has been sent for culture. Abdominal pelvic CT has been obtained, the results of which are as follows: 1. Fat stranding surrounding the right moiety of the horseshoe kidney, possibly indicating infection. 2. Calculi within the bilateral renal moieties. 3. Hepatic steatosis. 4. Normal appendix. Patient is admitted to the hospital for acute pyelonephritis Patient History Medical History Controlled type 2 diabetes mellitus (01/13/16) Hyperplastic colonic polyp (07/01/14) Nephrolithiasis Obesity (10/27/11) Prostate hypertrophy (04/24/14) Smoker (10/27/11) Surgical History Status post colonoscopy (06/27/14) Status post discectomy Family & Social History Family History Brother Hyperlipidemia Alcohol abuse Father Cancer of prostate CAD (coronary artery disease) Pacemaker Ulcer Mother Smoker CAD (coronary artery disease) Social History: household members spouse Prior Living Arrangements House Safety & Behavioral: Feels Safe in Current Yes Environment Been Physically Hurt or No Threatened By a Person Tobacco & Substance use: Smoking Status Current every day smoker alcohol intake frequency holiday/special occasion Substance Use Type marijuana Meds Home Medications and Allergies Home Medications Medication Instructions Recorded Confirmed Type ketorolac 10 mg tablet 10 mg PO Q8HP PRN #12 tab 11/01/16 11/08/21 Rx oxycodone 5 mg tablet 5 mg PO Q6HP PRN #12 tab 11/01/16 11/08/21 Rx sulfamethoxazole 800 1 tab PO Q12H 10 Days #20 tab 11/07/21 11/08/21 Rx mg-trimethoprim 160 mg tablet finasteride 5 mg tablet 5 mg PO BID 11/08/21 11/08/21 History gabapentin 600 mg tablet 600 mg PO BID 11/08/21 11/08/21 History glipizide 5 mg tablet, extended 5 mg PO DAILY 11/08/21 11/08/21 History release 24 hr metformin 500 mg tablet,extended 500 mg PO BID 11/08/21 11/08/21 History release 24 hr nortriptyline 25 mg capsule 25 mg PO BID 11/08/21 11/08/21 History phenazopyridine 200 mg tablet 200 mg PO BID 11/08/21 11/08/21 History tamsulosin 0.4 mg capsule 0.4 mg PO BID 11/08/21 11/08/21 History Allergies Allergy/AdvReac Type Severity Reaction Status Date / Time adhesive tape Allergy Mild ITCHY/RASH Verified 11/08/21 16:45 Penicillins Allergy Mild RASH Verified 11/07/21 09:49 hydrocodone AdvReac Nausea Verified 11/07/21 09:50 Review of Systems Review of Systems Narrative: 10 point review of system negative except as above Exam Vital Signs (past 8 hours): - 11/08/21 10:29 11/08/21 10:30 11/08/21 10:35 Temperature 98.9 F Pulse Rate 91 H 86 88 Respiratory Rate 18 Blood Pressure 122/58 L 125/58 L Pulse Oximetry 95 95 98 11/08/21 11:00 11/08/21 11:31 11/08/21 11:48 Temperature 98.9 F Pulse Rate 93 H 26 L 86 Respiratory Rate 24 21 Blood Pressure 116/63 120/55 L Pulse Oximetry 91 95 95 11/08/21 12:00 11/08/21 12:30 11/08/21 13:35 Temperature Pulse Rate 92 H 92 H 18 L Respiratory Rate 23 20 19 Blood Pressure 130/64 133/62 141/62 H Pulse Oximetry 94 95 98 11/08/21 14:00 11/08/21 14:46 11/08/21 16:19 Temperature 99.9 F H 102.7 F H Pulse Rate 91 H 90 Respiratory Rate 20 20 Blood Pressure 148/90 H 142/75 H Pulse Oximetry 95 97 11/08/21 16:43 Temperature Pulse Rate Respiratory Rate Blood Pressure Pulse Oximetry 97 Oxygen Delivery Method Nasal Cannula Oxygen Flow Rate 2 Narrative Exam Narrative: Ill-appearing male lying in bed [facility] Other: HEENT: Normocephalic atraumatic, extraocular muscles are intact, oropharynx is clear, neck is supple without adenopathy patient's skin is warm, and red Resp Other: Lungs: Decreased breath sounds with end-expiratory wheezing Cardio Other: Cardiac exam: Regular rate rhythm normal S1-S2 GI Other: Abdomen: Soft, mildly tender in the right upper quadrant, no palpable masses, no rebound tenderness, no board-like rigidity Back/Spine/Pelvis Other: Bilateral CVA tenderness Skin Other: Skin is warm and erythematous Neuro Other: Neuro exam is nonfocal Extrem Other: Extremity no edema Objective Labs Result Diagrams: 11/08/21 10:38 11/08/21 10:38 Labs: Laboratory Results - last 24 hr 11/08/21 11/08/21 11/08/21 10:38 10:38 11:39 WBC 20.0 H RBC 4.20 L Hgb 12.7 L Hct 36.5 L MCV 87.0 MCH 30.3 MCHC 34.8 RDW 12.8 Plt Count 241 Neut % (Auto) 85.0 H Lymph % (Auto) 5.[address] [place] % (Auto) 8.9 Eos % (Auto) 0.0 L Baso % (Auto) 0.7 Neut # (Auto) 85014 H Lymph # (Auto) 1100 [place] # (Auto) 1800 H Eos # (Auto) 0 Baso # (Auto) 100 Sodium 121 L Potassium 4.0 Chloride 89 L Carbon Dioxide 23 BUN 15 Creatinine 1.50 H Estimated GFR 48.2 L BUN/Creatinine Ratio 10.0 Glucose 158 H Lactate Calcium 8.8 Total Bilirubin 0.7 AST 41 ALT 32 Alkaline Phosphatase 48 Total Protein 7.4 Albumin 3.9 Globulin 3.5 Albumin/Globulin Ratio 1.1 Lipase 19 L Urine RBC 1-5/hpf D Urine WBC 10-30/hpf H Ur Squamous Epith Cells 0-1 /hpf Amorphous Sediment 1+ Urine Bacteria Few (2-10) H Ur Culture Indicated? Culture not indicate SARS-CoV-2 (PCR) 11/08/21 11/08/21 11:49 12:20 WBC RBC Hgb Hct MCV MCH MCHC RDW Plt Count Neut % (Auto) Lymph % (Auto) [place] % (Auto) Eos % (Auto) Baso % (Auto) Neut # (Auto) Lymph # (Auto) [place] # (Auto) Eos # (Auto) Baso # (Auto) Sodium Potassium Chloride Carbon Dioxide BUN Creatinine Estimated GFR BUN/Creatinine Ratio Glucose Lactate 0.7 Calcium Total Bilirubin AST ALT Alkaline Phosphatase Total Protein Albumin Globulin Albumin/Globulin Ratio Lipase Urine RBC Urine WBC Ur Squamous Epith Cells Amorphous Sediment Urine Bacteria Ur Culture Indicated? SARS-CoV-2 (PCR) Negative Assessment & Plan Assessment & Plan narrative: Impression 1. 55-year-old male with a history of type 2 diabetes, BPH, obesity, horseshoe kidney status post lithotripsy and ureteral stent placement now admitted to the hospital for acute pyelonephritis Patient appears to have severe sepsis as manifested by a kidney failure TIERRA, creatinine up to 1.55, suspect is prerenal azotemia from decreased oral intake in addition to nausea vomiting Patient is febrile, elevated white count, with urine cultures pending He patient had a recent ureteral stent placement, he has known nephrolithiasis which is a risk factor for continuous bacteria and bacteremia Will continue IV ceftriaxone 2 g daily, continue IV hydration, and pain medication Patient reports right upper quadrant pain, decreased appetite, persistent nausea and vomiting, will obtain abdominal ultrasound to rule out acute cholecystitis Patient will be kept NPO until abdominal ultrasound has been completed -will consult Urology if abdominal ultrasound is negative 2. Type 2 diabetes Patient previously on metformin and glipizide Both will be held at this time Will continue sliding scale insulin 3. BPH Will hold oral medications as he is vomiting resume finasteride and tamsulosin once he can tolerate p.o. Patient reports his is his durable power of attorney at law and surrogate decision maker He would like to be a full code and will note that his record accordingly. I have used all available resources to review update and confirm the patient's medication The patient will be admitted to the hospital as an inpatient Time Spent With Patient Critical Care time: I spent a total of [] minutes of critical care time on this patient's care today; this time is exclusive of procedural time.
[2021-11-08] MEDS: ACETAMINOPHEN 325 MG TABLET 650 MG PO (18:05)
[2021-11-08] MEDS: LACTATED RINGERS 1,000 ML 100 ML IV (18:06)
[2021-11-08] MEDS: HYDROMORPHONE 0.5 MG INJ IV (18:06)
[2021-11-08] MEDS: cefTRIAXone 2,000 MG in SODIUM CHLORIDE 0.9% 100 ML 200 ML IV (18:07)
--- NOTE | 2021-11-08 19:30 | PC.NURSE ---
Addendum entered by Yumiok Denise R.N. 11/09/21 00:38: 0100: LR changed to NS at 100/hour. temp 100.5, skin is beginning to be flushed and warm to touch. patient reports chills, and declined to have blankets removed. PRN apap 650mg given for temp, PRN dilauded 0.5mg given IVP for 6/10 btp kidneys. oral swabs and small amt of ice water at bedside for comfort, oral care. Addendum entered by Yumiko Denise R.N. 11/08/21 23:10: 2245: patient's na+ 121 in ED, call to hospitalist to notify, request NS vs LR IVF. he is not fluid overloaded, respiratory status remains WNL, continues on o2 via 2lpm at [facility] for comfort, sats are 96-97%. awaiting new orders if any. Original Note: 1929: temp reported at begin of shift: 102.9 3 blankets removed from patient, his gown was wrinkled under him, socks removed. covered w/ just a sheet, and cool wet towels placed on feet and head and around front of his neck/chest. skin hot and flushed. continues w/ LR at 100/hr. NPO status for pending US. 2029: orders show a u/a C+S is needed, this was collected and sent. 2129: temp 96.8 temporal. skin is no longer flushed and hot/dry. patient reports he is comfortable and feeling much better.
--- NOTE | 2021-11-08 19:34 | PC.NURSE ---
Pt AOx4. Pain is 8/10 and pt was given dilaudid for relief. On arrival O2 sat was 89% due to rapid breathing and pain. Was placed on 2L O2 and is now 94%. Currently has fever and was given tylenol to alleviate symptoms. Currently has LR running at 100 ml/hr. He was given ceftriaxone today. Pt is stable, currently asleep and bed in low position.
[2021-11-09] VITALS (9 sets, daily range): BP systolic 117–137; BP diastolic 53–67; PULSE 80–95; RESP 16–22; TEMP 36.2–38.2; O2SAT 94–98
[2021-11-09] MEDS: SODIUM CHLORIDE 0.9% 1,000 ML 100 ML IV ×3 (00:11→23:10)
[2021-11-09] MEDS: ACETAMINOPHEN 325 MG TABLET 650 MG PO ×2 (00:12→16:25)
[2021-11-09] MEDS: HYDROMORPHONE 0.5 MG INJ IV ×3 (00:13→20:55)
[2021-11-09 08:36] LABS: Add Manual Diff / Slide Review NO; Basophils Absolute Auto 0 /uL (0-100); Basophils Percent Auto 0.3 % (0-2); Eosinophils Absolute Auto 0 /uL (0-450); Eosinophils Percent Auto 0.1 % (2-4); Hematocrit 38.4 % (41-53); Lymphocytes Absolute Auto 800 /uL (1100-4500); Lymphocytes Percent Auto 6.7 % (25-40); Mean Corpuscular HGB Conc 33.8 % (30-36); Mean Corpuscular Hemoglobin 29.8 PG (26-34); Mean Corpuscular Volume 88.3 fL (80-100); Monocytes Absolute Auto 1200 /uL (0-900); Monocytes Percent Auto 9.9 % (3-14); Neutrophils Absolute Auto 10300 /uL (1500-7000); Platelet Count 215 X10^3/uL (150-400); Red Blood Cell Count 4.35 X10^6/uL (4.5-5.9); White Blood Cell Count 12.4 X10^3/uL (4.5-11.0)
[2021-11-09 08:54] LABS: Blood Urea Nitrogen 14 mg/dL (9-20); Calcium 8.7 mg/dL (8.4-10.2); Carbon Dioxide 24 mmol/L (22-32); Chloride 97 mmol/L (98-107); Estimated Glomerular Filt Rate > 60.0 mL/min (>60); Glucose 129 mg/dL (70-100); HEMOLYSIS < 15 (0-50); Potassium 4.2 mmol/L (3.4-5.1); Sodium 128 mmol/L (137-145)
[2021-11-09] MEDS: ENOXAPARIN 40 MG/0.4 ML SYRINGE SUBCUT (09:14)
[2021-11-09] MEDS: ONDANSETRON 4 MG/2 ML INJ IV (09:17)
--- NOTE | 2021-11-09 10:29 | CM.DANOTE ---
DCP: Case received, EMR reviewed and met with patient. Spouse, Nataliya, was at bedside. Introduced self and role. Was able to obtain information regarding patient's baseline activity status prior to hospitalization. DCP assessment completed with information currently available. Patient is a 55 year old male who admitted yesterday afternoon to the care of the hospitalist team. PCP: Dr. Zamora. Payer: confirmed: [employer] Out of [facility]. Patient came to the hospital via private vehicle secondary to having a fever, as well as flank back pain. Patient holds current diagnosis of Pyelonephritis. Patient had a temp of 102 upon admission. Met with patient in his room. was at bedside. Patient was laying on his side in bed, alert and oriented, having some discomfort. Confirmed that patient resides here in [place] with his spouse, Nataliya. He is independent at his baseline. P: DCP to continue to follow. According to hospitalist, patient may be having respiratory panel done due to cough. Patient should be able to go home when he is medically stable. Thuy Avelar RN/Veterinary Technician Discharge Planning/Care Management CM Discharge Assessment Start: 11/09/21 10:18 Freq: Status: Active Protocol: Document 11/09/21 10:18 (Rec: 11/09/21 10:24 [id number]) Discharge Planning Assessment Assigned Shipping And Receiving Clerk Thuy Avelar RN/Veterinary Technician Advance Directives? No History Provided By Medical Record Prior Living Arrangements House Household Members spouse Type of transporation used prior to Drives own vehicle admit Independent with ADL's Yes Is patient alert and oriented? Yes Caregiver for Another No Barriers to Discharge No Discharge Plan Home Transportation Arrangement Family Referrals Initiated None needed Whiteboard Updated in Patient Room with Yes name and ext. # of Shipping And Receiving Clerk Review Status In Process Next Review Type Continued Stay Review
[2021-11-09 11:10] LABS: Adenovirus Not Detected (Not Detect); B. parapertussis Not Detected (Not Detecte); Bordetella pertussis Not Detected (Not Detecte); Chlamydophila pneumoniae Not Detected (Not Detect); Coronavirus 229E Not Detected (Not Detect); Coronavirus HKU1 Not Detected (Not Detect); Coronavirus NL 63 Not Detected (Not Detect); Coronavirus OC43 Not Detected (Not Detect); Human Metapneumovirus Not Detected (Not Detect); Human Rhinovirus/Enterovirus Not Detected (Not Detect); Influenza A Not Detected (Not Detect); Influenza B Not Detected (Not Detect); Mycoplasma pneumoniae Not Detected (Not Detect); Parainfluenza Virus 1 Not Detected (Not Detect); Parainfluenza Virus 2 Not Detected (Not Detect); Parainfluenza Virus 3 Not Detected (Not Detect); Parainfluenza Virus 4 Not Detected (Not Detect); Respiratory Syncytial Virus Not Detected (Not Detect); SARS- CoV-2 Not Detected (Not Detecte)
--- NOTE | 2021-11-09 12:17 | P.PN_ITS ---
Subjective Subjective Date Patient Seen: 11/09/21 Interval history: The patient is a 55-year-old male with a history of a horseshoe kidney, nephrolithiasis, who was admitted to the hospital yesterday for acute pyelonephritis. The patient has been placed on ceftriaxone, he is growing Gram- positive cocci in his urine. He continues to have a cough, continues to complain of feeling poorly, he continues to have low-grade fevers. Exam Vital Signs (past 8 hours): - 11/09/21 05:52 11/09/21 08:00 Temperature 100.0 F H 98 F Pulse Rate 88 83 Respiratory Rate 18 20 Blood Pressure 117/61 131/53 L Pulse Oximetry 96 97 Oxygen Delivery Method Room Air Oxygen Flow Rate 0 Narrative Exam Narrative: Ill-appearing male lying in bed Resp Other: Lungs clear to auscultation Cardio Other: Cardiac exam: Regular rate and rhythm normal S1-S2 GI Other: Abdomen soft nontender nondistended Bilateral CVA tender Extrem Other: Extremity no edema Objective Labs Result Diagrams: 11/09/21 08:25 11/09/21 08:25 Labs: Laboratory Results - last 24 hr 11/08/21 11/08/21 11/09/21 11:49 12:20 08:25 WBC 12.4 H RBC 4.35 L Hgb 13.0 L Hct 38.4 L MCV 88.3 MCH 29.8 MCHC 33.8 RDW 13.0 Plt Count 215 Neut % (Auto) 83.0 H Lymph % (Auto) 6.7 L [place] % (Auto) 9.9 Eos % (Auto) 0.1 L Baso % (Auto) 0.3 Neut # (Auto) 40462 H Lymph # (Auto) 800 L [place] # (Auto) 1200 H Eos # (Auto) 0 Baso # (Auto) 0 Sodium Potassium Chloride Carbon Dioxide BUN Creatinine Estimated GFR BUN/Creatinine Ratio Glucose Lactate 0.7 Calcium Chlamy pneumoniae PCR Adenovirus (PCR) B. pertussis DNA (PCR) B.parapertussis DNA PCR Coronavirus OC43 (PCR) Coronavirus HKU1 (PCR) Coronavirus 229E (PCR) SARS-CoV-2 (PCR) Negative Coronavirus NL63 (PCR) Human Metapneumovir PCR Influenza Type A (PCR) Influenza Type B (PCR) M. pneumoniae (PCR) Parainfluenza 1 (PCR) Parainfluenza 2 (PCR) Parainfluenza 3 (PCR) Parainfluenza 4 (PCR) RSV (PCR) Entero/Rhino (PCR) 11/09/21 11/09/21 08:25 09:50 WBC RBC Hgb Hct MCV MCH MCHC RDW Plt Count Neut % (Auto) Lymph % (Auto) [place] % (Auto) Eos % (Auto) Baso % (Auto) Neut # (Auto) Lymph # (Auto) [place] # (Auto) Eos # (Auto) Baso # (Auto) Sodium 128 L Potassium 4.2 Chloride 97 L Carbon Dioxide 24 BUN 14 Creatinine 1.17 Estimated GFR > 60.0 BUN/Creatinine Ratio 12.0 Glucose 129 H Lactate Calcium 8.7 Chlamy pneumoniae PCR Not detected Adenovirus (PCR) Not detected B. pertussis DNA (PCR) Not detected B.parapertussis DNA PCR Not detected Coronavirus OC43 (PCR) Not detected Coronavirus HKU1 (PCR) Not detected Coronavirus 229E (PCR) Not detected SARS-CoV-2 (PCR) Not detected Coronavirus NL63 (PCR) Not detected Human Metapneumovir PCR Not detected Influenza Type A (PCR) Not detected Influenza Type B (PCR) Not detected M. pneumoniae (PCR) Not detected Parainfluenza 1 (PCR) Not detected Parainfluenza 2 (PCR) Not detected Parainfluenza 3 (PCR) Not detected Parainfluenza 4 (PCR) Not detected RSV (PCR) Not detected Entero/Rhino (PCR) Not detected PFSH Medical History Controlled type 2 diabetes mellitus (01/13/16) Hyperplastic colonic polyp (07/01/14) Nephrolithiasis Obesity (10/27/11) Prostate hypertrophy (04/24/14) Smoker (10/27/11) Surgical History Status post colonoscopy (06/27/14) Status post discectomy Family History Brother Hyperlipidemia Alcohol abuse Father Cancer of prostate CAD (coronary artery disease) Pacemaker Ulcer Mother Smoker CAD (coronary artery disease) Social History household members: spouse Smoking Status: Current every day smoker Assessment & Plan Assessment & Plan narrative: 55-year-old male with a history of type 2 diabetes, BPH, obesity, horseshoe kidney status post lithotripsy and ureteral stent placement now admitted to the hospital for acute pyelonephritis * Patient appears to have severe sepsis as manifested by a kidney failure * TIERRA, creatinine up to 1.55, suspect is prerenal azotemia from decreased oral intake in addition to nausea vomiting * Patient is febrile, elevated white count, with urine cultures pending * He patient had a recent ureteral stent placement, he has known nephrolithiasis which is a risk factor for continuous bacteria and bacteremia * Will continue IV ceftriaxone 2 g daily, continue IV hydration, and pain medication * Patient reports right upper quadrant pain, decreased appetite, persistent nausea and vomiting, will obtain abdominal ultrasound to rule out acute cholecystitis Patient will be kept NPO until abdominal ultrasound has been completed, Ultrasound reveals normal gallbladder, can advance diet -will consult Urology -Continue current antibiotics -Continue IV hydration, Creatinine improved today 2. Type 2 diabetes * Patient previously on metformin and glipizide * Both will be held at this time * Will continue sliding scale insulin3. BPH * will check glycohemoglobin 3. Cough -respiratory panel negative -will start guiafenesen -continue current antibiotics Will hold oral medications as he is vomiting resume finasteride and tamsu losin once he can tolerate p.o. Time Spent With Patient Critical Care time: I spent a total of [] minutes of critical care time on this patient's care today; this time is exclusive of procedural time.
[2021-11-09] MEDS: TAMSULOSIN 0.4 MG CAPSULE PO (12:56)
[2021-11-09] MEDS: cefTRIAXone 2,000 MG in SODIUM CHLORIDE 0.9% 100 ML 200 ML IV (16:25)
[2021-11-09] MEDS: LIDOCAINE PATCH 1 EACH ADH..PATCH TOP (17:57)
[2021-11-09] MEDS: GABAPENTIN 600 MG TABLET PO (20:51)
[2021-11-09] MEDS: NORTRIPTYLINE HCL 25 MG CAPSULE PO (20:51)
[2021-11-09] MEDS: FINASTERIDE 5 MG TABLET PO (20:51)
[2021-11-10] VITALS (8 sets, daily range): BP systolic 109–146; BP diastolic 61–78; PULSE 57–86; RESP 16–20; TEMP 36.3–38.6; O2SAT 93–97
[2021-11-10 07:50] LABS: BUN Creatinine Ratio 13.3 (6-22); Blood Urea Nitrogen 15 mg/dL (9-20); Calcium 8.3 mg/dL (8.4-10.2); Carbon Dioxide 25 mmol/L (22-32); Chloride 97 mmol/L (98-107); Estimated Glomerular Filt Rate > 60.0 mL/min (>60); Glucose 124 mg/dL (70-100); HEMOLYSIS < 15 (0-50); Potassium 3.8 mmol/L (3.4-5.1); Sodium 129 mmol/L (137-145)
[2021-11-10] MEDS: ENOXAPARIN 40 MG/0.4 ML SYRINGE SUBCUT (08:19)
[2021-11-10] MEDS: GABAPENTIN 600 MG TABLET PO ×2 (08:19→20:54)
[2021-11-10] MEDS: FINASTERIDE 5 MG TABLET PO ×2 (08:19→20:54)
[2021-11-10] MEDS: TAMSULOSIN 0.4 MG CAPSULE PO (08:19)
[2021-11-10] MEDS: NORTRIPTYLINE HCL 25 MG CAPSULE PO ×2 (08:34→20:54)
--- NOTE | 2021-11-10 14:17 | P.PN_ITS ---
Subjective Subjective Date Patient Seen: 11/10/21 Interval history: Patient is a 55-year-old male admitted to the hospital with acute pyelonephritis following a stent placement for nephrolithiasis. Overall he is feeling significantly improved today. Patient did share that during the procedure he developed atrial fibrillation postoperatively. He has had no further episodes of atrial fibrillation that he is aware of. He is not short of breath. Appetite is improved. Overall the patient feels significantly better. Exam Vital Signs (past 8 hours): - 11/10/21 08:27 11/10/21 12:00 Temperature 98.6 F 97.4 F L Pulse Rate 57 L 76 Respiratory Rate 16 16 Blood Pressure 130/61 127/64 Pulse Oximetry 93 95 Oxygen Delivery Method Room Air Oxygen Flow Rate 0 Narrative Exam Narrative: Pleasant male sitting in a chair in no obvious distress Resp Other: Lungs clear to auscultation Cardio Other: Cardiac exam: Regular rate and rhythm normal S1-S2 with a 3/6 systolic ejection murmur GI Other: Abdomen soft nontender nondistended Extrem Other: No edema Objective Labs Result Diagrams: 11/09/21 08:25 11/10/21 07:10 Labs: Laboratory Results - last 24 hr 11/10/21 07:10 Sodium 129 L Potassium 3.8 Chloride 97 L Carbon Dioxide 25 BUN 15 Creatinine 1.13 Estimated GFR > 60.0 BUN/Creatinine Ratio 13.3 Glucose 124 H Calcium 8.3 L PFSH Medical History Controlled type 2 diabetes mellitus (01/13/16) Hyperplastic colonic polyp (07/01/14) Nephrolithiasis Obesity (10/27/11) Prostate hypertrophy (04/24/14) Smoker (10/27/11) Surgical History Status post colonoscopy (06/27/14) Status post discectomy Family History Brother Hyperlipidemia Alcohol abuse Father Cancer of prostate CAD (coronary artery disease) Pacemaker Ulcer Mother Smoker CAD (coronary artery disease) Social History household members: spouse Smoking Status: Current every day smoker Assessment & Plan Assessment & Plan narrative: 55-year-old male with a history of type 2 diabetes, BPH, obesity, horseshoe kidney status post lithotripsy and ureteral stent placement now admitted to the hospital for acute pyelonephritis * Patient appears to have severe sepsis as manifested by a kidney failure * TIERRA, creatinine up to 1.55, suspect is prerenal azotemia from decreased oral intake in addition to nausea vomiting, improved Creatinine 1.13 * Patient is febrile, elevated white count, with urine cultures pending, urine cultures growing Aerococus viridans * He patient had a recent ureteral stent placement, he has known nephrolithiasis which is a risk factor for continuous bacteria and bacteremia * Will continue IV ceftriaxone 2 g daily, continue IV hydration, and pain medication * Patient reports right upper quadrant pain, decreased appetite, persistent nausea and vomiting, will obtain abdominal ultrasound to rule out acute cholecystitis-ultrasound negative Patient will be kept NPO until abdominal ultrasound has been completed, Ultrasound reveals normal gallbladder, can advance diet -will consult Urology, no need for urological intervention -Continue current antibiotics -Continue IV hydration, Creatinine improved today 2. Type 2 diabetes * Patient previously on metformin and glipizide * Both will be held at this time * Will continue sliding scale insulin3. BPH * will check glycohemoglobin3. Cough -respiratory panel negative -will start guiafenesen -continue current antibiotics 3. Parosxysmal Atrial Fibrillation -Systolic Murmur on Exam -Will obtain Echo 4. Ancticipate discharge home tomorrow Time Spent With Patient Critical Care time: I spent a total of [] minutes of critical care time on this patient's care today; this time is exclusive of procedural time.
[2021-11-10] MEDS: cefTRIAXone 2,000 MG in SODIUM CHLORIDE 0.9% 100 ML 200 ML IV (16:56)
[2021-11-10] MEDS: SODIUM CHLORIDE 0.9% 1,000 ML 100 ML IV (16:57)
[2021-11-10] MEDS: ACETAMINOPHEN 325 MG TABLET 650 MG PO (16:57)
[2021-11-11] VITALS: BP 154/85; PULSE 88; RESP 18; TEMP 37.9; O2SAT 96
[2021-11-11 00:29] VITALS: TEMP 37.9
[2021-11-11] MEDS: ACETAMINOPHEN 325 MG TABLET 650 MG PO (00:29)
[2021-11-11 00:59] VITALS: TEMP 37.1
[2021-11-11 01:58] VITALS: TEMP 37.1
[2021-11-11] MEDS: SODIUM CHLORIDE 0.9% 1,000 ML 100 ML IV (03:07)
[2021-11-11 04:06] VITALS: BP 136/75; PULSE 80; RESP 18; TEMP 37.1; O2SAT 96
[2021-11-11 06:44] LABS: Add Manual Diff / Slide Review NO; Basophils Absolute Auto 100 /uL (0-100); Basophils Percent Auto 0.7 % (0-2); Eosinophils Absolute Auto 100 /uL (0-450); Hematocrit 35.4 % (41-53); Hemoglobin 12.1 g/dL (13.5-17.5); Lymphocytes Absolute Auto 1400 /uL (1100-4500); Lymphocytes Percent Auto 16.3 % (25-40); Mean Corpuscular HGB Conc 34.3 % (30-36); Mean Corpuscular Hemoglobin 29.9 PG (26-34); Mean Corpuscular Volume 87.2 fL (80-100); Monocytes Absolute Auto 1000 /uL (0-900); Monocytes Percent Auto 11.9 % (3-14); Neutrophils Absolute Auto 6100 /uL (1500-7000); Neutrophils Percent Auto 70.1 % (50-75); Platelet Count 234 X10^3/uL (150-400); Red Blood Cell Count 4.06 X10^6/uL (4.5-5.9); Red Cell Distribution Width 13.3 % (11.6-14.8); White Blood Cell Count 8.7 X10^3/uL (4.5-11.0)
[2021-11-11 06:54] LABS: BUN Creatinine Ratio 13.9 (6-22); Blood Urea Nitrogen 17 mg/dL (9-20); Calcium 8.6 mg/dL (8.4-10.2); Carbon Dioxide 29 mmol/L (22-32); Chloride 101 mmol/L (98-107); Estimated Glomerular Filt Rate > 60.0 mL/min (>60); Glucose 119 mg/dL (70-100); HEMOLYSIS < 15 (0-50); Potassium 3.9 mmol/L (3.4-5.1); Sodium 133 mmol/L (137-145)
[2021-11-11 07:11] LABS: Procalcitonin 2.77 ng/mL (<0.5)
--- NOTE | 2021-11-11 08:38 | PM.DS.1 ---
History of Present Illness History of Present Illness Date Patient Seen: 11/11/21 Time Patient Seen: 08:38 Chief complaint: Kidney infection Narrative: The patient is a 55-year-old male with a history of type 2 diabetes, nephrolithiasis, obesity, benign prostatic hypertrophy, who underwent lithotripsy with ureteral stent placement 11 days ago. Patient is known to have a horseshoe kidney. Presented to the emergency room yesterday with fever nausea vomiting and malaise. UA was positive. Patient was given levofloxacin in the emergency department and discharged home on oral antibiotics. He states he was well until last evening at 7:00 p.m. when he again developed nonproductive cough, nausea and vomiting, diarrhea, and abdominal pain. Patient reports it to having dark emesis, he also reports having black stool. He has been febrile to over 102. His reports he has had shaking chills. He has not been able to eat since Tuesday, 5 days prior to admission. The patient was evaluated in the emergency room. His white count is markedly elevated at 20, his creatinine has increased to 1.5 from his baseline, urine appears infected and has been sent for culture. Abdominal pelvic CT has been obtained, the results of which are as follows: 1. Fat stranding surrounding the right moiety of the horseshoe kidney, possibly indicating infection. 2. Calculi within the bilateral renal moieties. 3. Hepatic steatosis. 4. Normal appendix. Patient is admitted to the hospital for acute pyelonephritis Discharge Providers Provider Date of admission: 11/08/21 12:58 Discharge Date: 11/11/21 Primary care physician: Roby Zamora MD Discharge provider: Georgette Lopez MD Summary Hospital Course Discharge Diagnosis: 1. Acute pyelonephritis 2. Horseshoe kidney 3. Nephrolithiasis, status post ureteral stent placement 4. Type 2 diabetes 5. Paroxysmal atrial fibrillation, now in sinus rhythm, systolic murmur on exam, recommend outpatient echo for further evaluation Hospital Course: Patient was admitted to the hospital with a diagnosis of acute pyelonephritis, patient was found to have severe sepsis, his creatinine increased to 1.55 with hydration this improved. Patient's cultures grew aerococcus viridans. He was placed on IV ceftriaxone. He had improvement of his white count. Fever improved. His overall clinical picture and approved. White count improved from 12.4-8.7. The patient had an initial cough, his respiratory panel was negative. Blood cultures remain negative. Patient made slow but steady progress and was deemed appropriate for discharge home. The patient reported a history of proximal atrial fibrillation during his ureteral stent placement. He was also noted to have a systolic heart murmur on exam. The patient will follow-up with his primary care provider as an outpatient for echocardiogram to further address. At the time of this dictation the patient is sitting up eating breakfast. He has no specific complaints. He is deemed appropriate for discharge home. Status at Discharge Cognitive/behavioral status at discharge: oriented Functional status at discharge: independent ambulation Overall status at discharge: patient is progressing back to baseline Exam Vital Signs (past 8 hours): - 11/11/21 00:59 11/11/21 01:58 11/11/21 04:06 Temperature 98.8 F 98.8 F 98.7 F Pulse Rate 80 Respiratory Rate 18 Blood Pressure 136/75 Pulse Oximetry 96 Oxygen Delivery Method Room Air Oxygen Flow Rate 0 Narrative Exam Narrative: Pleasant gentleman resting comfortably in no obvious distress Resp Other: Lungs clear to auscultation Cardio Other: Cardiac exam: Regular rate and rhythm normal S1-S2 with a 2/6 systolic ejection murmur GI Other: Abdomen: Soft and nontender Extrem Other: Extremities: No edema Objective Labs Result Diagrams: 11/11/21 06:10 11/11/21 06:10 Labs: Laboratory Results - last 24 hr 11/11/21 11/11/21 11/11/21 06:10 06:10 06:10 WBC 8.7 RBC 4.06 L Hgb 12.1 L Hct 35.4 L MCV 87.2 MCH 29.9 MCHC 34.3 RDW 13.3 Plt Count 234 Neut % (Auto) 70.1 Lymph % (Auto) 16.3 L [place] % (Auto) 11.9 Eos % (Auto) 1.0 L Baso % (Auto) 0.7 Neut # (Auto) 6100 Lymph # (Auto) 1400 [place] # (Auto) 1000 H Eos # (Auto) 100 Baso # (Auto) 100 Sodium 133 L Potassium 3.9 Chloride 101 Carbon Dioxide 29 BUN 17 Creatinine 1.22 Estimated GFR > 60.0 BUN/Creatinine Ratio 13.9 Glucose 119 H Calcium 8.6 Procalcitonin 2.77 H [facility] Medical History Controlled type 2 diabetes mellitus (01/13/16) Hyperplastic colonic polyp (07/01/14) Nephrolithiasis Obesity (10/27/11) Prostate hypertrophy (04/24/14) Smoker (10/27/11) Surgical History Status post colonoscopy (06/27/14) Status post discectomy Family History Brother Hyperlipidemia Alcohol abuse Father Cancer of prostate CAD (coronary artery disease) Pacemaker Ulcer Mother Smoker CAD (coronary artery disease) Social History household members: spouse Smoking Status: Current every day smoker Discharge Assessment & Plan Assessment and Plan Assessment: Acute pyelonephritis 2. Horseshoe kidney 3. Nephrolithiasis, status post ureteral stent placement 4. Type 2 diabetes 5. Paroxysmal atrial fibrillation, now in sinus rhythm, systolic murmur on exam, recommend outpatient echo for further evaluation 6. Severe sepsis present on admission, now resolved 7. Acute kidney injury present on admission, likely related to prerenal azotemia, resulting from sepsis, now resolved Plan of Treatment: Discharge home on medications as prescribed Discharge Plan Discharge Plan Patient Disposition: Home Discharge orders & Medications Prescriptions: New levofloxacin 250 mg tablet 250 mg PO DAILY Qty: 7 0RF Continued ketorolac 10 MG tablet 10 mg PO Q8HP PRNQty: 12 0RF oxycodone 5 MG tablet 5 mg PO Q6HP PRNQty: 12 0RF gabapentin 600 mg tablet 600 mg PO BID 0RF phenazopyridine 200 mg tablet 200 mg PO BID 0RF Label Comments: TAKE 1 TABLET BY MOUTH THREE TIMES DAILY NEEDED FOR BLADDER SPASMS glipizide 5 mg tablet extended release 24hr 5 mg PO DAILY 0RF nortriptyline 25 mg capsule 25 mg PO BID 0RF tamsulosin 0.4 mg capsule 0.4 mg PO BID 0RF metformin 500 mg tablet extended release 24 hr 500 mg PO BID 0RF finasteride 5 mg tablet 5 mg PO BID 0RF Discontinued sulfamethoxazole-trimethoprim 800-160 mg tablet 1 tab PO Q12H 10 Days Qty: 20 0RF Follow up/Referrals: Roby Zamora MD [Primary Care Provider] - Discharge Data Primary Care Provider: Roby Zamora
[2021-11-11 09:17] VITALS: BP 146/86; PULSE 78; RESP 18; TEMP 37.3; O2SAT 100
[2021-11-11] MEDS: FINASTERIDE 5 MG TABLET PO (09:39)
[2021-11-11] MEDS: NORTRIPTYLINE HCL 25 MG CAPSULE PO (09:39)
[2021-11-11] MEDS: ENOXAPARIN 40 MG/0.4 ML SYRINGE SUBCUT (09:39)
[2021-11-11] MEDS: GABAPENTIN 600 MG TABLET PO (09:39)
[2021-11-11] MEDS: TAMSULOSIN 0.4 MG CAPSULE PO (09:39)
--- NOTE | 2021-11-11 10:32 | PC.NURSE ---
Assess- Patient is alert and oriented x3, he denies pain. in room visiting. Patient will be discharged at around 11am. He ate well at breakfast and voided 250cc of yellow urine.
--- NOTE | 2021-11-11 10:52 | CM.DPC ---
DCP Discharge Home Per MD, pt is medically stable to d/c home today with no identified barriers to discharge. Pt has appointment set for next week for Urologist f/u. Per RN, pt was able to tolerate breakfast well and voided independently and spouse bedside and plan is to d/c home by 1100 and no concerns noted. Plan: Patient to d/c home today via spouse POV and outpt f/u with Urologist. No SW needs at this time. ASTON Piña
== END 2021-11-11 12:12 | disposition home or self-care (01) | DRG 872 ==
LOC: ED 10:54 → AC 13:01
PROVIDERS: Admitting Provider Internal Medicine; Emergency Provider Emergency Medicine; PCP Family Medicine; Referring Provider Emergency Medicine; Visit Provider Internal Medicine
DX: A41.9 Sepsis, unspecified organism (principal); N10 Acute pyelonephritis; N17.9 Acute kidney failure, unspecified; E87.1 Hypo-osmolality and hyponatremia; N20.0 Calculus of kidney; R65.20 Severe sepsis without septic shock; Q63.1 Lobulated, fused and horseshoe kidney; E11.9 Type 2 diabetes mellitus without complications; Z79.84 Long term (current) use of oral hypoglycemic drugs; R05.9 Cough, unspecified; Z20.822 Contact with and (suspected) exposure to COVID-19; B96.89 Other specified bacterial agents as the cause of diseases classified elsewhere; F17.200 Nicotine dependence, unspecified, uncomplicated; N40.0 Benign prostatic hyperplasia without lower urinary tract symptoms; N28.9 Disorder of kidney and ureter, unspecified
CPT/HCPCS: 36415; 71045; 74176; 76705; 80048; 80053; 81003; 81015; 82962; 83605; 83690; 84145; 85025; 87040; 87077; 87086; 87633; 87635; 93005; 93010; 94762; 96361; 96365; 96375; 96376; 99284; 99285; 99291; 99406; C9803; J0696; J1170; J1650; J1815; J1956; J2405

== ENCOUNTER → 2021-12-17 11:01 | Outpatient (CLI) | payer OTHER, SELFPAY ==
[2021-11-08 14:26] VITALS: BMI 36.6
--- NOTE | 2021-12-17 | DI.US.S_ITS ---
PROCEDURE: US RENAL COMPLETE INDICATIONS: CALCULUS OF URETER TECHNIQUE: Real-time scanning was performed of the kidneys and bladder, with image documentation. COMPARISON: [facility], CT, CT KIDNEY URETER BLADDER (KUB), 11/08/2021, 11:25. FINDINGS: Kidneys: Horseshoe kidney. Right moiety measures 6.6 cm long; left moiety measures 11 cm long. Right renal cortical thickness is 1.2 cm; left renal cortical thickness is 1.3 cm. Bilateral echogenic foci, compatible with nephrolithiasis. Two hypoechoic lesions are seen in the right kidney, measuring up to 3.6 cm, compatible with cysts. No hydronephrosis or solid mass. Bladder: Pre-void bladder volume is 55 mL. Post-void residual is 0 mL. Pre-void images demonstrate no intraluminal masses or stones. On pre-void images, no ureteral jets are noted with color Doppler interrogation. (Of note, ureteral jets may not be detectable in up to 25% of cases due to insufficient differences in specific gravity between ureteral and bladder urine). Miscellaneous: No free pelvic fluid. IMPRESSION: 1. Horseshoe kidney. 2. Bilateral nephrolithiasis. 3. Two simple appearing right renal cysts. Dictated by: David Mcintyre M.D. on 12/17/2021 at 12:51 Approved by: David Mcintyre M.D. on 12/17/2021 at 12:55
== END ==
PROVIDERS: PCP Family Medicine; Referring Provider Urology; Visit Provider Urology
DX: N20.1 Calculus of ureter (principal); N28.1 Cyst of kidney, acquired; N20.0 Calculus of kidney; Q63.1 Lobulated, fused and horseshoe kidney
CPT/HCPCS: 76770

== ENCOUNTER 2023-04-19 09:17 | Observation (INO) | payer OTHER, MEDICAID, SELFPAY ==
[2021-11-08 14:26] VITALS: BMI 36.6
[2023-04-19] VITALS (25 sets, daily range): BP systolic 129–183; BP diastolic 61–78; PULSE 58–100; RESP 14–33; TEMP 36.5–36.9; O2SAT 92–98; BMI 33.2
--- NOTE | 2023-04-19 09:24 | DI.RAD.S_ITS ---
PROCEDURE: XR CHEST 1V INDICATIONS: Shortness of breath TECHNIQUE: One view of the chest was acquired. COMPARISON: [facility], CR, XR CHEST 1V, 11/07/2021, 10:14. [facility], CR, XR CHEST 2V, 10/17/2019, 16:20. FINDINGS: Surgical changes and devices: None. Lungs and pleura: Right greater than left mid and lower lung consolidations. Small pleural effusions. Mediastinum: Borderline cardiomegaly. Bones and chest wall: No suspicious bony lesions. Overlying soft tissues appear unremarkable. IMPRESSION: Right greater than left mid and lower lung consolidation suspicious for pneumonia. Small right pleural effusion. Consider future imaging surveillance to assess for resolution. Dictated by: Giovanni Tejada M.D. on 04/19/2023 at 9:55 Approved by: Giovanni Tejada M.D. on 04/19/2023 at 9:56
[2023-04-19] MEDS: ALBUTEROL/IPRATROPIUM 3 ML AMPUL INH (09:42)
[2023-04-19 09:53] LABS: Add Manual Diff / Slide Review NO; Basophils Absolute Auto 100 /uL (0-100); Basophils Percent Auto 0.6 % (0-2); Eosinophils Absolute Auto 400 /uL (0-450); Hematocrit 36.8 % (41-53); Hemoglobin 12.5 g/dL (13.5-17.5); Lymphocytes Absolute Auto 2400 /uL (1100-4500); Lymphocytes Percent Auto 28.5 % (25-40); Mean Corpuscular HGB Conc 33.9 % (30-36); Mean Corpuscular Volume 88.3 fL (80-100); Monocytes Absolute Auto 500 /uL (0-900); Monocytes Percent Auto 6.3 % (3-14); Neutrophils Absolute Auto 5100 /uL (1500-7000); Neutrophils Percent Auto 59.6 % (50-75); Platelet Count 289 X10^3/uL (150-400); Red Blood Cell Count 4.17 X10^6/uL (4.5-5.9); Red Cell Distribution Width 13.9 % (11.6-14.8); White Blood Cell Count 8.6 X10^3/uL (4.5-11.0)
[2023-04-19 09:54] LABS: COVID19 -Nasal RAPID Negative (Negative)
[2023-04-19 09:59] LABS: INR 1.1 (0.9-1.3); Prothrombin Time 13.1 SECONDS (10.1-12.7)
[2023-04-19 10:04] LABS: Alanine Aminotransferase 33 IU/L (<50); Albumin Globulin Ratio 1.2 (1.0-2.8); Alkaline Phosphatase 67 U/L (38-126); Aspartate Aminotransferase 24 IU/L (17-59); BUN Creatinine Ratio 14.8 (6-22); Bilirubin Total 0.3 mg/dL (0.2-1.3); Blood Urea Nitrogen 19 mg/dL (9-20); Carbon Dioxide 26 mmol/L (22-32); Chloride 105 mmol/L (98-107); Estimated Glomerular Filt Rate > 60 mL/min (>60); Globulin 3.4 g/dL (1.7-4.1); Glucose 163 mg/dL (70-100); HEMOLYSIS < 15 (0-50); Lactate (Lactic Acid) 1.1 mmol/L (0.7-2.1); Potassium 4.1 mmol/L (3.4-5.1); Sodium 139 mmol/L (137-145); Total Protein 7.4 g/dL (6.3-8.2)
[2023-04-19 10:16] LABS: NT-proBNP (BNP-Adult 18+) 3580 pg/mL (<125); Troponin I 0.027 ng/mL (0.01-0.034)
--- NOTE | 2023-04-19 12:22 | ED_ITS ---
HPI - SOB/Dyspnea General Chief Complaint: Shortness of Breath/Dyspnea Stated Complaint: heart problems; out of breath, unable to sleep Time Seen by Provider: 04/19/23 09:37 Source: patient Mode of arrival: Family Vehicle Limitations: no limitations History of Present Illness HPI Narrative: This is a 57-year-old male with history of horseshoe kidney, prior kidney stones with chronic back pain and 1 prior episode of atrial fibrillation during surgery. Patient presents with complaint of shortness of breath since a week ago with intermittent chest pain with exertion. Patient states particularly when he goes up the stairs at home. He states it is on the left side does not radiate elsewhere. Denies fevers he has had some chills. He is noticed some swelling in his lower extremities. He is had a cough which he describes as foamy or frothy. No discoloration. He denies any syncope or lightheadedness. No nausea or vomiting. Sometimes gets a little swelling when he exerts himself. Patient states he has not had similar issues in the past. Notes that about a year and a half ago he had a stent placed in his kidney he had an episode of atrial fibrillation while he was in the OR and states he got yell that is for not telling them that he had atrial fibrillation and almost got cardioverted. He states that his symptoms or AFib resolved without any additional intervention. Patient states he is not taking any his daily medications he was prescribed gabapentin, he uses cannabis regularly but no other medications. He states he is never been on medication for hypertension, cholesterol, diabetes, no water pills or anticoagulants. He is had ureteral stent placement as well as removal, prior back surgery. He states he is has not allergy to penicillin gets a rash. He states he smoked for about 40 years currently half pack per day. Occasional alcohol. No illicit. He is in between providers he does have a primary care he is an appointment set up for a couple months but has not seen them. Related Data Home Medications Medication Instructions Recorded Confirmed No Known Home Medications 04/19/23 04/19/23 Allergies Allergy/AdvReac Type Severity Reaction Status Date / Time adhesive tape Allergy Mild ITCHY/RASH Verified 04/19/23 15:13 Penicillins Allergy Mild RASH Verified 04/19/23 15:13 hydrocodone AdvReac Nausea Verified 04/19/23 15:13 Review of Systems Review of Systems ROS Unobtainable: All systems reviewed & are unremarkable except as noted in HPI and below Patient History Medical History Controlled type 2 diabetes mellitus (01/13/16) Hyperplastic colonic polyp (07/01/14) Nephrolithiasis Obesity (10/27/11) Prostate hypertrophy (04/24/14) Smoker (10/27/11) Surgical History Status post colonoscopy (06/27/14) Status post discectomy Family History Brother Hyperlipidemia Alcohol abuse Father Cancer of prostate CAD (coronary artery disease) Pacemaker Ulcer Mother Smoker CAD (coronary artery disease) Social History household members: spouse Smoking Status: Current every day smoker alcohol intake: current Smoking Status: Current every day smoker tobacco type: cigarettes alcohol intake frequency: holidays/special occasions only Substance Use Type: marijuana Exam Narrative Exam Narrative: GENERAL: Alert and oriented x three, well-nourished male in mild distress. HEENT: Head normocephalic, atraumatic, EOMI, pupils reactive, face symmetric, moist mucous membranes NECK: Supple, full range of motion CARDIOVASCULAR: Regular rate and rhythm without murmurs, rubs or gallops. Mild JVD. Bilateral swelling 1 to 2+ bilateral lower extremities. Nonpitting. RESPIRATORY: Breath sounds equal bilaterally, no wheezes, no rhonchi. Patient has crackles bilateral bases. No tachypnea. No accessory muscle use. Speaks in full sentences. ABDOMEN: Soft, nontender. Normoactive bowel sounds all 4 quadrants. No guarding or rebound, rigidity, no mass : No CVA tenderness EXTREMITIES: Normal range of motion, no clubbing. Neurovascularly intact NEUROLOGICAL: Cranial nerves II through XII grossly intact. Moving all extremities SKIN: Warm, dry, no petechiae, no rashes or lesions. Initial Vital Signs Initial Vital Signs: Vital Signs Temperature 97.7 F 04/19/23 09:22 Pulse Rate 81 04/19/23 09:22 Respiratory Rate 20 04/19/23 09:22 Blood Pressure 160/70 H 04/19/23 09:22 Pulse Oximetry 93 05/23/23 09:22 Oxygen Delivery Method Room Air 05/23/23 09:22 Course Orders Ordered: ED Orders 04/19/23 09:24 XR chest 1V Stat EKG-12 Lead Stat Measure peak expiratory flow ONCE RT Consult Eval and Treat NOW 04/19/23 09:34 COVID19 -Nasal RAPID Stat 04/19/23 09:43 Complete Blood Count AUTO DIFF Stat Comprehensive Metabolic Panel Stat Lactate (Lactic Acid) Stat NT-proBNP (BNP-Adult 18+) Stat Prothrombin Time INR Stat Troponin I Stat 04/19/23 12:03 Trop I [Troponin I] Stat 04/19/23 12:08 EKG-12 Lead Routine Acetaminophen (Acetaminophen 325 Mg Tablet) 650 mg PO Q6H PRN PRN Reason: Fever/Mild Pain (1-3) Albuterol/Ipratropium (Albuterol/Ipratropium 3 Ml Ampul) 3 ml INH [id number] PRN PRN Reason: shortness of breath/wheezing Aspirin (Aspirin Ec 81 Mg Tablet) 81 mg PO DAILY FIORELLA Atorvastatin Calcium (Atorvastatin 20 Mg Tablet) 40 mg PO BEDTIME FIORELLA Dextrose (Dextrose 50 % In Water 25 Gm/50 Ml Syringe) 25 gm IV PRN PRN PRN Reason: Hypoglycemia Furosemide (Furosemide 40 Mg/4 Ml Vial) 40 mg IV 1600,0800 REPLACED BY [facility] Last Admin: 04/19/23 16:19 Dose: 40 mg Documented By: CW Heparin Sodium (Porcine) (Heparin 5,000 Unit/Ml Vial) 5,000 unit SUBCUT BID REPLACED BY [facility] Insulin Human Lispro (Insulin Lispro 100 Unit/Ml 3ml Vial) 0 unit SUBCUT ACHS REPLACED BY [facility]; Protocol Last Admin: 04/19/23 17:05 Dose: Not Given Documented By: STEPHAN Lidocaine (Lidocaine Patch 1 Each Adh..Patch) 1 each TOP DAILY REPLACED BY [facility] Last Admin: 04/19/23 16:20 Dose: 1 each Documented By: CW Losartan Potassium (Losartan 25 Mg Tablet) 25 mg PO DAILY REPLACED BY [facility] Last Admin: 04/19/23 16:18 Dose: 25 mg Documented By: CW Melatonin (Melatonin 3 Mg Tablet) 6 mg PO BEDTIME PRN PRN Reason: Insomnia Naloxone HCl (Naloxone 0.4 Mg/Ml Vial) 0.2 mg IV Q2MIN PRN PRN Reason: Opiate Reversal Discontinued Medications Albuterol/Ipratropium (Albuterol/Ipratropium 3 Ml Ampul) 3 ml INH NOW ONE Stop: 04/19/23 09:39 Last Admin: 04/19/23 09:42 Dose: 3 ml Documented By: NATHALIA Aspirin (Aspirin 81 Mg Chew Tab) 324 mg PO NOW ONE Stop: 04/19/23 12:38 Last Admin: 04/19/23 13:14 Dose: 324 mg Documented By: ASHLEY Furosemide 60 mg/ Sodium (Chloride) 56 mls @ 112 mls/hr IV NOW ONE Stop: 04/19/23 12:38 Last Infusion: 04/19/23 13:52 Dose: 0 mls/hr Documented By: Admin: 04/19/23 13:14 Dose: 112 mls/hr Documented By: ASHLEY Vital Signs Vital signs: Vital Signs - 8 hr 04/19/23 10:30 04/19/23 10:30 04/19/23 11:00 Pulse Rate 64 Respiratory Rate 15 Blood Pressure 140/63 138/65 Pulse Oximetry 93 Oxygen Delivery Method 04/19/23 11:00 04/19/23 13:18 04/19/23 11:30 Pulse Rate 66 100 H Respiratory Rate 16 Blood Pressure 129/61 Pulse Oximetry 94 94 Oxygen Delivery Method 04/19/23 11:30 04/19/23 12:00 04/19/23 12:00 Pulse Rate 69 82 Respiratory Rate 18 22 Blood Pressure 144/67 H Pulse Oximetry 94 95 Oxygen Delivery Method 04/19/23 12:30 04/19/23 12:30 04/19/23 13:00 Pulse Rate 75 Respiratory Rate 19 Blood Pressure 140/62 149/65 H Pulse Oximetry 95 Oxygen Delivery Method 04/19/23 13:00 04/19/23 13:12 04/19/23 13:12 Pulse Rate 74 88 Respiratory Rate 24 29 H Blood Pressure 183/77 H Pulse Oximetry 92 95 Oxygen Delivery Method 04/19/23 13:30 04/19/23 13:31 04/19/23 13:31 Pulse Rate 75 71 Respiratory Rate 22 21 Blood Pressure 147/67 H Pulse Oximetry 93 94 Oxygen Delivery Method Room Air 04/19/23 14:00 04/19/23 14:00 04/19/23 14:30 Pulse Rate 68 Respiratory Rate 23 Blood Pressure 155/66 H 161/71 H Pulse Oximetry 92 Oxygen Delivery Method Room Air 04/19/23 14:30 Pulse Rate 67 Respiratory Rate 23 Blood Pressure Pulse Oximetry 94 Oxygen Delivery Method MDM - SOB/Dyspnea Lab Data 04/19/23 09:43 04/19/23 09:43 Labs: Lab Results 04/19/23 04/19/23 04/19/23 Range/Units 09:34 09:43 09:43 WBC 8.6 (4.5-11.0) X10^3/uL RBC 4.17 L (4.5-5.9) X10^6/uL Hgb 12.5 L (13.5-17.5) g/dL Hct 36.8 L (41-53) % MCV 88.3 (80-100) fL MCH 30.0 (26-34) PG MCHC 33.9 (30-36) % RDW 13.9 (11.6-14.8) % Plt Count 289 (150-400) X10^3/uL Neut % (Auto) 59.6 (50-75) % Lymph % (Auto) 28.5 (25-40) % Piute % (Auto) 6.3 (3-14) % Eos % (Auto) 5.0 H (2-4) % Baso % (Auto) 0.6 (0-2) % Neut # (Auto) 5100 (4307-8768) /uL Lymph # (Auto) 2400 (3229-2999) /uL Piute # (Auto) 500 (0-900) /uL Eos # (Auto) 400 (0-450) /uL Baso # (Auto) 100 (0-100) /uL PT 13.1 H (10.1-12.7) SECONDS INR 1.1 (0.9-1.3) Sodium (137-145) mmol/L Potassium (3.4-5.1) mmol/L Chloride (98-107) mmol/L Carbon Dioxide (22-32) mmol/L BUN (9-20) mg/dL Creatinine (0.66-1.25) mg/dL Estimated GFR (>60) mL/min BUN/Creatinine Ratio (6-22) Glucose (70-100) mg/dL Lactate (0.7-2.1) mmol/L Calcium (8.4-10.2) mg/dL Magnesium (1.6-2.3) mg/dL Total Bilirubin (0.2-1.3) mg/dL AST (17-59) IU/L ALT (<50) IU/L Alkaline Phosphatase (38-126) U/L Troponin I (0.01-0.034) ng/mL NT-Pro-B Natriuret Pep (<125) pg/mL Total Protein (6.3-8.2) g/dL Albumin (3.5-5.0) g/dL Globulin (1.7-4.1) g/dL Albumin/Globulin Ratio (1.0-2.8) Triglycerides (35-150) mg/dL Cholesterol (140-199) mg/dL LDL Cholesterol, Calc (<100) mg/dL HDL Cholesterol (40-60) mg/dL Procalcitonin (<0.5) ng/mL TSH (0.47-4.68) uIU/mL SARS-CoV-2 (PCR) Negative (Negative) 04/19/23 04/19/23 04/19/23 Range/Units 09:43 09:43 09:43 WBC (4.5-11.0) X10^3/uL RBC (4.5-5.9) X10^6/uL Hgb (13.5-17.5) g/dL Hct (41-53) % MCV (80-100) fL MCH (26-34) PG MCHC (30-36) % RDW (11.6-14.8) % Plt Count (150-400) X10^3/uL Neut % (Auto) (50-75) % Lymph % (Auto) (25-40) % Piute % (Auto) (3-14) % Eos % (Auto) (2-4) % Baso % (Auto) (0-2) % Neut # (Auto) (5128-1281) /uL Lymph # (Auto) (7239-7236) /uL Piute # (Auto) (0-900) /uL Eos # (Auto) (0-450) /uL Baso # (Auto) (0-100) /uL PT (10.1-12.7) SECONDS INR (0.9-1.3) Sodium 139 (137-145) mmol/L Potassium 4.1 (3.4-5.1) mmol/L Chloride 105 (98-107) mmol/L Carbon Dioxide 26 (22-32) mmol/L BUN 19 (9-20) mg/dL Creatinine 1.28 H (0.66-1.25) mg/dL Estimated GFR > 60 (>60) mL/min BUN/Creatinine Ratio 14.8 (6-22) Glucose 163 H (70-100) mg/dL Lactate 1.1 (0.7-2.1) mmol/L Calcium 9.0 (8.4-10.2) mg/dL Magnesium 1.7 (1.6-2.3) mg/dL Total Bilirubin 0.3 (0.2-1.3) mg/dL AST 24 (17-59) IU/L ALT 33 (<50) IU/L Alkaline Phosphatase 67 (38-126) U/L Troponin I 0.027 (0.01-0.034) ng/mL NT-Pro-B Natriuret Pep 3580 H (<125) pg/mL Total Protein 7.4 (6.3-8.2) g/dL Albumin 4.0 (3.5-5.0) g/dL Globulin 3.4 (1.7-4.1) g/dL Albumin/Globulin Ratio 1.2 (1.0-2.8) Triglycerides (35-150) mg/dL Cholesterol (140-199) mg/dL LDL Cholesterol, Calc (<100) mg/dL HDL Cholesterol (40-60) mg/dL Procalcitonin (<0.5) ng/mL TSH (0.47-4.68) uIU/mL SARS-CoV-2 (PCR) (Negative) 04/19/23 04/19/23 04/19/23 Range/Units 09:43 09:43 09:43 WBC (4.5-11.0) X10^3/uL RBC (4.5-5.9) X10^6/uL Hgb (13.5-17.5) g/dL Hct (41-53) % MCV (80-100) fL MCH (26-34) PG MCHC (30-36) % RDW (11.6-14.8) % Plt Count (150-400) X10^3/uL Neut % (Auto) (50-75) % Lymph % (Auto) (25-40) % Piute % (Auto) (3-14) % Eos % (Auto) (2-4) % Baso % (Auto) (0-2) % Neut # (Auto) (0480-0888) /uL Lymph # (Auto) (4633-0661) /uL Piute # (Auto) (0-900) /uL Eos # (Auto) (0-450) /uL Baso # (Auto) (0-100) /uL PT (10.1-12.7) SECONDS INR (0.9-1.3) Sodium (137-145) mmol/L Potassium (3.4-5.1) mmol/L Chloride (98-107) mmol/L Carbon Dioxide (22-32) mmol/L BUN (9-20) mg/dL Creatinine (0.66-1.25) mg/dL Estimated GFR (>60) mL/min BUN/Creatinine Ratio (6-22) Glucose (70-100) mg/dL Lactate (0.7-2.1) mmol/L Calcium (8.4-10.2) mg/dL Magnesium (1.6-2.3) mg/dL Total Bilirubin (0.2-1.3) mg/dL AST (17-59) IU/L ALT (<50) IU/L Alkaline Phosphatase (38-126) U/L Troponin I (0.01-0.034) ng/mL NT-Pro-B Natriuret Pep (<125) pg/mL Total Protein (6.3-8.2) g/dL Albumin (3.5-5.0) g/dL Globulin (1.7-4.1) g/dL Albumin/Globulin Ratio (1.0-2.8) Triglycerides 191 H (35-150) mg/dL Cholesterol 226 H (140-199) mg/dL LDL Cholesterol, Calc 156 H (<100) mg/dL HDL Cholesterol 32 L (40-60) mg/dL Procalcitonin 0.04 (<0.5) ng/mL TSH 2.19 (0.47-4.68) uIU/mL SARS-CoV-2 (PCR) (Negative) 04/19/23 Range/Units 12:03 WBC (4.5-11.0) X10^3/uL RBC (4.5-5.9) X10^6/uL Hgb (13.5-17.5) g/dL Hct (41-53) % MCV (80-100) fL MCH (26-34) PG MCHC (30-36) % RDW (11.6-14.8) % Plt Count (150-400) X10^3/uL Neut % (Auto) (50-75) % Lymph % (Auto) (25-40) % Piute % (Auto) (3-14) % Eos % (Auto) (2-4) % Baso % (Auto) (0-2) % Neut # (Auto) (6032-0302) /uL Lymph # (Auto) (1465-4234) /uL Piute # (Auto) (0-900) /uL Eos # (Auto) (0-450) /uL Baso # (Auto) (0-100) /uL PT (10.1-12.7) SECONDS INR (0.9-1.3) Sodium (137-145) mmol/L Potassium (3.4-5.1) mmol/L Chloride (98-107) mmol/L Carbon Dioxide (22-32) mmol/L BUN (9-20) mg/dL Creatinine (0.66-1.25) mg/dL Estimated GFR (>60) mL/min BUN/Creatinine Ratio (6-22) Glucose (70-100) mg/dL Lactate (0.7-2.1) mmol/L Calcium (8.4-10.2) mg/dL Magnesium (1.6-2.3) mg/dL Total Bilirubin (0.2-1.3) mg/dL AST (17-59) IU/L ALT (<50) IU/L Alkaline Phosphatase (38-126) U/L Troponin I 0.027 (0.01-0.034) ng/mL NT-Pro-B Natriuret Pep (<125) pg/mL Total Protein (6.3-8.2) g/dL Albumin (3.5-5.0) g/dL Globulin (1.7-4.1) g/dL Albumin/Globulin Ratio (1.0-2.8) Triglycerides (35-150) mg/dL Cholesterol (140-199) mg/dL LDL Cholesterol, Calc (<100) mg/dL HDL Cholesterol (40-60) mg/dL Procalcitonin (<0.5) ng/mL TSH (0.47-4.68) uIU/mL SARS-CoV-2 (PCR) (Negative) Urine Dip Bedside Urine Glucose Negative Bedside Urine Bilirubin - Negative Bedside Urine Ketone - Negative Urine Specific [place] 1.015 Bedside Urine Occult Blood - Negative Bedside Urine pH 6.5 Bedside Urine Protein - Negative Bedside Urine Urobilinogen - Negative Bedside Urine Nitrite - Negative Bedside Urine Leukocytes - Negative Esterase Imaging Data Chest x-ray: Radiologist's Impression: Close Chest X-Ray (Signed) Giovanni Tejada - 04/19/23 Renal Ultrasound (Signed) David Mcintyre - 12/17/21 Abdomen Ultrasound (Signed) Austyn Boucher - 11/08/21 Telemetry Strips 11/08/21 Abdomen/Pelvis CT (Signed) Ludmila Shaw - 11/08/21 Chest X-Ray (Signed) Ludmila Shaw - 11/07/21 Abdomen/Pelvis CT (Signed) Mona Augustine - 07/01/21 Chest X-Ray (Signed) Lisa Steel - 10/17/19 Launch?[place] [address] XRay Report Signed Patient: Shaheed Negron MR#: [id number] : 1965 Acct:[id number] Age/Sex: 57 / M Date of Service: 04/19/23 Loc: Accession Number: [id number] ?? Procedure: XR chest 1V Ordering Provider: Marla Ortiz D.O. PROCEDURE:? XR CHEST 1V ? INDICATIONS:? Shortness of breath ? TECHNIQUE:? One view of the chest was acquired.? ? COMPARISON:? [facility], , XR CHEST 1V, 11/07/2021, 10:14.? [facility], , XR CHEST 2V, 10/17/2019, 16:20. ? FINDINGS:? ? Surgical changes and devices:? None.? ? Lungs and pleura:? Right greater than left mid and lower lung consolidations.? Small pleural effusions. ? Mediastinum:? Borderline cardiomegaly. ? Bones and chest wall:? No suspicious bony lesions.? Overlying soft tissues appear unremarkable.? ? IMPRESSION:? Right greater than left mid and lower lung consolidation suspicious for pneumonia.? Small right pleural effusion.? Consider future imaging surveillance to assess for resolution. ? ? ? Dictated by: Giovanni Tejada M.D. on 04/19/2023 at 9:55 ? ? Approved by: Giovanni Tejada M.D. on 04/19/2023 at 9:56?? ECG Data Attestation: I personally reviewed and interpreted this ECG as follows: Interpretation: EKGs read as atrial fibrillation the patient actually appears to have P waves with each QRS with rate of 71 QRS 88 QTC of 471. No acute ST elevation depression noted. EKG 2. Shows sinus rhythm rate of 71, TN 188, QRS of 90 QTC of 462. No acute ST elevation depression noted. ST segments appears similar. MDM Narrative Medical decision making narrative: This is a 57-year-old male who presents with complaint of shortness of breath, chest pain and swelling of extremities. Patient appears to have some CHF component, BNP is elevated 3580, troponins are negative at 0.027 x 2. Creatinine is 1.28 but baseline appears to be 1.17-1.22. Hemoglobin is 12 with a crit of 36, no leukocytosis, platelets are appropriate. Electrolytes are normal with a glucose of 163. Patient is COVID negative. Chest x-ray shows right greater than left mid consolidation possible infection and right small pleural effusion. Patient has also had a prior renal ultrasound that showed horseshoe kidney. Patient had DuoNeb in the department states it was mildly helpful. Suspect he has more CHF than pneumonia as the cause of his symptoms today. Was given aspirin, Lasix, ambulatory pulse ox which was appropriate. Discussed with Dr. Soriano, hospitalist for CHF exacerbation chest pain observation. Dr. Soriano accepts for observation with goal of stress testing and ECHO. Discharge Plan Departure Patient Disposition: Admitted as Observation Clinical Impression: CHF (congestive heart failure), Chest pain Admit Date/Time: 04/19/23 14:44 Admit Provider: Mj Soriano
[2023-04-19 12:36] LABS: Troponin I 0.027 ng/mL (0.01-0.034)
[2023-04-19] MEDS: FUROSEMIDE 60 MG in SODIUM CHLORIDE 0.9% 50 ML 112 MG IV (13:14)
[2023-04-19] MEDS: ASPIRIN 81 MG CHEW TAB 324 MG PO (13:14)
--- NOTE | 2023-04-19 15:16 | DI.ECHO.S_ITS ---
[facility] +---------+ : : [address] : : : : [id number] : : : : Phone: [phone]+ Echocardiogram Report + + :Name: MASON BELLA Study Date: 04/20/2023 Height: 72 in : :[facility] ReadingLocation: Weight: 245 lb : : Gender: Male BSA: 2.3 m2 : :: 1965 Age: 57 yrs BP: 127/60 mmHg: :Reason For Study: SUSPECTED CHF, CHEST PAIN : :Ordering Physician: JOHAN, : :RONY Campa Performed By: Denise Gibbs : :Referring: RONY PRADO : + + Interpretation Summary The ejection fraction is estimated to be 50-55%. Diastolic function could not be accurately assessed due to unobtainable data. The left atrium is borderline dilated. The right ventricle is normal in size and function. There is mild mitral regurgitation. There is mild aortic stenosis. There is moderate aortic regurgitation. There is mild tricuspid regurgitation. The right ventricular systolic pressure is estimated to be at least 53 mmHg based on an estimated right atrial pressure of 3 mm Hg. Compared to the prior study dated 12/18/2012, the aortic regurgitation has increased and the valve now is mildly stenotic. Procedure: A two-dimensional transthoracic echocardiogram with color flow and Doppler was performed. The study quality was technically adequate. Comparison is made with the echocardiogram of 12/18/2012. The heart rate ranged between 62-78 bpm during the study. Left Ventricle: The left ventricle is normal in size and wall thickness. The ejection fraction is estimated to be 50-55%. Diastolic function could not be accurately assessed due to unobtainable data. Right Ventricle: The right ventricle is normal in size and function. Atria: The left atrium is borderline dilated. Right atrial size is normal. There is no Doppler evidence for an interatrial shunt. Mitral Valve: The mitral valve is normal. There is mild mitral regurgitation. Aortic Valve: The aortic valve is mildly calcified. There is mild aortic stenosis. The peak aortic velocity is 2.7 m/sec. The aortic valve mean gradient is 15 mmHg. The calculated aortic valve area is 1.6 cm2. There is moderate aortic regurgitation. Tricuspid Valve: The tricuspid valve is normal in structure and function. There is mild tricuspid regurgitation. The right ventricular systolic pressure is estimated to be at least 53 mmHg based on an estimated right atrial pressure of 3 mm Hg. Pulmonic Valve: The pulmonic valve is not well visualized. Great Vessels: The aortic root is normal size. The ascending aorta could not be visualized. The IVC is of normal diameter and collapses greater than 50% with a sniff. This suggests a low right atrial pressure of 3 mm Hg. Pericardium/ Pleura There is no pericardial effusion. There is no pleural effusion. MMode/2D Measurements & Calculations LVIDd: 5.0 cm LVOT diam: 2.2 cm LVIDs: 3.7 cm Ao root diam: 3.4 cm FS: 25.5 % Ao Arch Diam (Prox Trans): 3.0 cm IVSd: 1.1 cm LVPWd: 1.1 cm LV collins. diameter/BSA (cm/m^2): 2.2 LV sys. diameter/BSA (cm/m^2): 1.6 LA A2 area: 24.4 cm2 RA long axis: 5.5 cm LA A4 area: 20.7 cm2 RA area: 19.0 cm2 LA length (vol): 5.4 cm RA vol: 55.5 ml LA vol: 80.0 ml RA : 23.9 ml/m2 LA vol index: 34.4 ml/m2 IVC diam: 1.9 cm RVD1 (basal): 3.9 cm RVD2 (mid): 3.6 cm TAPSE: 2.4 cm Doppler Measurements & Calculations Ao V2 max: 272.8 cm/sec LVOT Max Howard: 120.4 cm/sec Ao V2 mean: 166.9 cm/sec LV V1 max P.8 mmHg Ao max P.8 mmHg LV V1 VTI: 27.2 cm Ao mean P.0 mmHg SULEIMAN(I,D): 1.6 cm2 Ao V2 VTI: 60.8 cm SULEIMAN(V,D): 1.6 cm2 sev ratio: 0.45 SULEIMAN indexed to BSA (cm^2/m^2): 0.70 MV E max howard: 87.3 cm/sec TR max howard: 351.5 cm/sec MV A max howard: 2.5 cm/sec TR max P.4 mmHg MV E/A: 35.6 Med Peak E' Howard: 5.8 cm/sec E/E' med: 15.0 Lat Peak E' Howard: 8.0 cm/sec E/E' lat: 10.9 E/e' average: 13.0 MV dec time: 0.20 sec SV(LVOT): 98.8 ml AV P1/2t-pr_phl: 334.2 msec Reading Physician:08:32 AM
--- NOTE | 2023-04-19 15:20 | PM.HP.1 ---
History of Present Illness History of Present Illness Date Patient Seen: 04/19/23 Time Patient Seen: 15:20 Chief complaint: heart problems; out of breath, unable to sleep Narrative: Shaheed Negron is a 57yo M with PMH of diet-controlled DM2, HTN, HLD, 40 pack year current smoker, kidney stones, horseshoe kidney, back pain s/p lumbar diskectomy, daily marijuana use, and likely undiagnosed COPD who presents with worsening exertional dyspnea, orthopnea and unstable angina. Patient takes no medications currently. He says over the last week he has had worsening dyspnea walking up stairs and also sometimes at rest. Has trouble breathing lying flat and sometimes wakes up at night gasping for air. Also having left-sided chest pressure with activity and at rest. Describes it as a dull pressure. Radiates sometimes to jaw. No NV or diaphoresis. Also some increased leg and ankle swelling. Denies palpitations, cough, wheezing, abd pain, diarrhea, dysuria. In the ED trop neg x2. EKG without ST changes. Denied current chest pain. COVID negative. PFSH Medical History Controlled type 2 diabetes mellitus (01/13/16) Hyperplastic colonic polyp (07/01/14) Nephrolithiasis Obesity (10/27/11) Prostate hypertrophy (04/24/14) Smoker (10/27/11) Surgical History Status post colonoscopy (06/27/14) Status post discectomy Family History Brother Hyperlipidemia Alcohol abuse Father Cancer of prostate CAD (coronary artery disease) Pacemaker Ulcer Mother Smoker CAD (coronary artery disease) Social History household members: spouse Smoking Status: Current every day smoker Meds Home Medications and Allergies Home Medications Medication Instructions Recorded Confirmed Type No Known Home Medications 04/19/23 04/19/23 History Allergies Allergy/AdvReac Type Severity Reaction Status Date / Time adhesive tape Allergy Mild ITCHY/RASH Verified 04/19/23 15:13 Penicillins Allergy Mild RASH Verified 04/19/23 15:13 hydrocodone AdvReac Nausea Verified 04/19/23 15:13 Review of Systems Review of Systems Narrative: All other systems reviewed with the patient and are negative unless otherwise stated. Exam Vital Signs (past 8 hours): - 04/19/23 09:22 04/19/23 09:42 04/19/23 09:22 Temperature 97.7 F Pulse Rate 81 73 81 Respiratory Rate 20 18 Blood Pressure 160/70 H Pulse Oximetry 93 94 92 Oxygen Delivery Method Room Air Room Air Oxygen Flow Rate 0 Fraction of Inspired Oxygen 21 04/19/23 09:23 04/19/23 09:30 04/19/23 09:30 Temperature Pulse Rate 78 70 Respiratory Rate 14 Blood Pressure 137/64 Pulse Oximetry 94 93 Oxygen Delivery Method Oxygen Flow Rate Fraction of Inspired Oxygen 04/19/23 10:00 04/19/23 10:00 04/19/23 10:30 Temperature Pulse Rate 64 Respiratory Rate 19 Blood Pressure 136/63 140/63 Pulse Oximetry 92 Oxygen Delivery Method Oxygen Flow Rate Fraction of Inspired Oxygen 04/19/23 10:30 04/19/23 11:00 04/19/23 11:00 Temperature Pulse Rate 64 66 Respiratory Rate 15 16 Blood Pressure 138/65 Pulse Oximetry 93 94 Oxygen Delivery Method Oxygen Flow Rate Fraction of Inspired Oxygen 04/19/23 13:18 04/19/23 11:30 04/19/23 11:30 Temperature Pulse Rate 100 H 69 Respiratory Rate 18 Blood Pressure 129/61 Pulse Oximetry 94 94 Oxygen Delivery Method Oxygen Flow Rate Fraction of Inspired Oxygen 04/19/23 12:00 04/19/23 12:00 04/19/23 12:30 Temperature Pulse Rate 82 Respiratory Rate 22 Blood Pressure 144/67 H 140/62 Pulse Oximetry 95 Oxygen Delivery Method Oxygen Flow Rate Fraction of Inspired Oxygen 04/19/23 12:30 04/19/23 13:00 04/19/23 13:00 Temperature Pulse Rate 75 74 Respiratory Rate 19 24 Blood Pressure 149/65 H Pulse Oximetry 95 92 Oxygen Delivery Method Oxygen Flow Rate Fraction of Inspired Oxygen 04/19/23 13:12 04/19/23 13:12 04/19/23 13:30 Temperature Pulse Rate 88 75 Respiratory Rate 29 H 22 Blood Pressure 183/77 H Pulse Oximetry 95 93 Oxygen Delivery Method Oxygen Flow Rate Fraction of Inspired Oxygen 04/19/23 13:31 04/19/23 13:31 Temperature Pulse Rate 71 Respiratory Rate 21 Blood Pressure 147/67 H Pulse Oximetry 94 Oxygen Delivery Method Room Air Oxygen Flow Rate Fraction of Inspired Oxygen Fraction of Inspired Oxygen 21 SaO2/FiO2 Ratio 447 Oxygen Delivery Method Room Air Oxygen Flow Rate 0 Narrative Exam Narrative: GEN: no acute distress HEENT: moist mucous membranes, PERRL NECK: trachea midline, no JVD CV: regular rate and rhythm, no murmurs PULM: faint rales, no wheezes or rhonchi ABD: soft, nontender, nondistended, no organomegaly EXT: warm and well perfused, 1+ edema of LE's to knees NEURO: awake, alert, oriented, no focal deficits Objective Labs 04/19/23 09:43 04/19/23 09:43 Labs: Laboratory Results - last 24 hr 04/19/23 04/19/23 04/19/23 09:34 09:43 09:43 WBC 8.6 RBC 4.17 L Hgb 12.5 L Hct 36.8 L MCV 88.3 MCH 30.0 MCHC 33.9 RDW 13.9 Plt Count 289 Neut % (Auto) 59.6 Lymph % (Auto) 28.5 [place] % (Auto) 6.3 Eos % (Auto) 5.0 H Baso % (Auto) 0.6 Neut # (Auto) 5100 Lymph # (Auto) 2400 [place] # (Auto) 500 Eos # (Auto) 400 Baso # (Auto) 100 PT 13.1 H INR 1.1 Sodium Potassium Chloride Carbon Dioxide BUN Creatinine Estimated GFR BUN/Creatinine Ratio Glucose Lactate Calcium Total Bilirubin AST ALT Alkaline Phosphatase Troponin I NT-Pro-B Natriuret Pep Total Protein Albumin Globulin Albumin/Globulin Ratio SARS-CoV-2 (PCR) Negative 04/19/23 04/19/23 04/19/23 09:43 09:43 12:03 WBC RBC Hgb Hct MCV MCH MCHC RDW Plt Count Neut % (Auto) Lymph % (Auto) [place] % (Auto) Eos % (Auto) Baso % (Auto) Neut # (Auto) Lymph # (Auto) [place] # (Auto) Eos # (Auto) Baso # (Auto) PT INR Sodium 139 Potassium 4.1 Chloride 105 Carbon Dioxide 26 BUN 19 Creatinine 1.28 H Estimated GFR > 60 BUN/Creatinine Ratio 14.8 Glucose 163 H Lactate 1.1 Calcium 9.0 Total Bilirubin 0.3 AST 24 ALT 33 Alkaline Phosphatase 67 Troponin I 0.027 0.027 NT-Pro-B Natriuret Pep 3580 H Total Protein 7.4 Albumin 4.0 Globulin 3.4 Albumin/Globulin Ratio 1.2 SARS-CoV-2 (PCR) Assessment & Plan Assessment & Plan narrative: # typical chest pain -patient describes left-sided dull chest pressure both with exertion and at rest, radiating to jaw -has several cardiac risk factors including male, age 57, smoker, untreated diabetes, HTN and HLD -obtain nuclear exercise stress test -start ASA 81mg daily -trops neg x2, check AM trop -tele # exertional dyspnea due to suspected CHF exacerbation -also orthopnea and PND -no history of heart failure, BNP 3580 with pedal edema and pleural effusion on chest x-ray -obtain echo, no prior available -given 60mg IV lasix in ED -continue lasix 40mg IV BID # untreated type 2 diabetes -patient not on diabetes medications even though he was diagnosed with this years ago -check A1c -dietitian consult -ACHS glucose checks -sliding scale insulin # untreated HTN and HLD -BP elevated to 183/77, not on home BP meds -last LDL 180 in 2017, not on lipid therapy -start losartan 25mg daily and lipitor 40mg nightly # history of horseshoe kidney -Cr mildly elevated at 1.28, does not meet criteria for TIERRA -monitor # lumbar back pain s/p diskectomy -lidocaine patch # 40 pack year smoker with likely undiagnosed COPD -currently smokes 1/2 ppd -O2 sats low 90's on monitor at rest -O2 supplementation if O2 <90% -should have PCP referral for PFT's -duonebs PRN # daily marijuana use -smokes marijuana for his back pain Code status is full code. COVID negative. DVT prophylaxis with heparin subQ. Proxy is . I have reviewed home meds and used all available resources to reconcile the home meds. This patient will be admitted as observation and will require less than 2 midnights of hospital time to treat chest pain rule out.
[2023-04-19 16:11] LABS: Cholesterol 226 mg/dL (140-199); HDL Cholesterol 32 mg/dL (40-60); LDL Cholesterol Calculated 156 mg/dL (<100); Magnesium 1.7 mg/dL (1.6-2.3); Triglycerides 191 mg/dL (35-150)
[2023-04-19] MEDS: LOSARTAN 25 MG TABLET PO (16:18)
[2023-04-19] MEDS: FUROSEMIDE 40 MG/4 ML VIAL IV (16:19)
[2023-04-19] MEDS: LIDOCAINE PATCH 1 EACH ADH..PATCH TOP (16:20)
[2023-04-19 16:27] LABS: Procalcitonin 0.04 ng/mL (<0.5)
[2023-04-19 16:42] LABS: TSH w/ Reflex to FT4 2.19 uIU/mL (0.47-4.68)
[2023-04-19 17:14] LABS: MRSA (Nasal) PCR Not Detected (Not Detect)
[2023-04-19] MEDS: LORATADINE 10 MG TABLET PO (20:56)
[2023-04-19] MEDS: ATORVASTATIN 20 MG TABLET 40 MG PO (20:56)
[2023-04-19] MEDS: HEPARIN 5,000 UNIT/ML VIAL 5000 UNIT SUBCUT (20:56)
[2023-04-20] VITALS: BP 120/58; PULSE 82; RESP 17; TEMP 36.6; O2SAT 94
[2023-04-20 04:00] VITALS: BP 127/60; PULSE 76; RESP 17; TEMP 36.4; O2SAT 98
[2023-04-20 05:02] LABS: Add Manual Diff / Slide Review NO; Basophils Absolute Auto 100 /uL (0-100); Basophils Percent Auto 1.2 % (0-2); Eosinophils Absolute Auto 600 /uL (0-450); Eosinophils Percent Auto 6.2 % (2-4); Hematocrit 39.8 % (41-53); Hemoglobin 13.5 g/dL (13.5-17.5); Lymphocytes Absolute Auto 2600 /uL (1100-4500); Mean Corpuscular Hemoglobin 29.7 PG (26-34); Mean Corpuscular Volume 87.3 fL (80-100); Monocytes Absolute Auto 700 /uL (0-900); Monocytes Percent Auto 7.2 % (3-14); Neutrophils Absolute Auto 5600 /uL (1500-7000); Neutrophils Percent Auto 58.4 % (50-75); Platelet Count 291 X10^3/uL (150-400); Red Blood Cell Count 4.56 X10^6/uL (4.5-5.9); Red Cell Distribution Width 13.8 % (11.6-14.8); White Blood Cell Count 9.5 X10^3/uL (4.5-11.0)
[2023-04-20 05:11] LABS: BUN Creatinine Ratio 16.7 (6-22); Blood Urea Nitrogen 20 mg/dL (9-20); Calcium 9.3 mg/dL (8.4-10.2); Carbon Dioxide 27 mmol/L (22-32); Chloride 103 mmol/L (98-107); Estimated Glomerular Filt Rate > 60 mL/min (>60); Glucose 143 mg/dL (70-100); HEMOLYSIS < 15 (0-50); Potassium 4.1 mmol/L (3.4-5.1); Sodium 138 mmol/L (137-145)
[2023-04-20 08:00] VITALS: BP 131/63; PULSE 82; RESP 18; TEMP 36.6; O2SAT 98
[2023-04-20] MEDS: ASPIRIN EC 81 MG TABLET PO (08:46)
[2023-04-20] MEDS: LOSARTAN 25 MG TABLET PO (08:46)
[2023-04-20] MEDS: LORATADINE 10 MG TABLET PO (08:46)
[2023-04-20] MEDS: HEPARIN 5,000 UNIT/ML VIAL 5000 UNIT SUBCUT (08:46)
[2023-04-20] MEDS: FUROSEMIDE 40 MG/4 ML VIAL IV (08:46)
[2023-04-20 09:18] LABS: x Labcorp Estim. Avg Glu (eAG) 232 mg/dL (.); x Labcorp Hemoglobin A1c 9.7 % (4.8-5.6)
--- NOTE | 2023-04-20 10:34 | CM.DANOTE ---
DCP: Patient is a 57yo M here for heart problems and shortness of breath. Per provider in rounds, it was discovered that patient has unmanaged diabetes. Patient is currently waiting on results from stress test to gather more information on potential heart conditions and further treatment. Payer: [facility] and [employer]/Medicaid. PCP: Dr. Froylan CLANCY entered room and introduced self and role. Patient was A/Ox4 and sitting up in bed. Patient reported being eager and excited to leave and get home to his husky puppy. Patient reports living at home with his , Nataliya ([phone]). Patient reported that prior to this he was independent with ADLs, drives, and manages his needs well. He is considering hiring someone out for yard work because that has become harder for him in the past few months. Patient says he has not seen Dr. Hanna before and already has a follow up appointment scheduled for approximately 2 months from now. Patient states he has seen a PCP approximately 2 years ago but they moved. Patient says can pick him up and drive him home when ready to d/c. Patient made a joke about living close enough to walk home if needed. Plan: Home with family when medically stable via spouse POV. Follow up appointment allegedly already scheduled. CM Team to continue to follow with needs. ASTON Keating Discharge Planning/Care Management CM Discharge Assessment Start: 04/20/23 10:28 Freq: Status: Active Protocol: Document 04/20/23 10:28 (Rec: 04/20/23 10:33 [email or web address]) Discharge Planning Assessment Assigned Place Change Roof Bolter ASTON Keating DPOA/Assigned Designee Name Nataliya Negron () Contact Information [phone] Advance Directives? No History Provided By Patient,Medical Record Prior Living Arrangements House Household Members spouse Type of transporation used prior to Drives own vehicle admit Independent with ADL's Yes Is patient alert and oriented? Yes Discharge Plan Home Transportation Arrangement Family Referrals Initiated None needed Whiteboard Updated in Patient Room with Yes name and ext. # of Place Change Roof Bolter Review Status In Process Next Review Type Continued Stay Review
--- NOTE | 2023-04-20 13:24 | P.DS_ITS ---
History of Present Illness History of Present Illness Date Patient Seen: 04/19/23 Time Patient Seen: 15:20 Chief complaint: heart problems; out of breath, unable to sleep Narrative: Shaheed Negron is a 57yo M with PMH of diet-controlled DM2, HTN, HLD, 40 pack year current smoker, kidney stones, horseshoe kidney, back pain s/p lumbar diskectomy, daily marijuana use, and likely undiagnosed COPD who presents with worsening exertional dyspnea, orthopnea and unstable angina. Patient takes no medications currently. He says over the last week he has had worsening dyspnea walking up stairs and also sometimes at rest. Has trouble breathing lying flat and sometimes wakes up at night gasping for air. Also having left-sided chest pressure with activity and at rest. Describes it as a dull pressure. Radiates sometimes to jaw. No NV or diaphoresis. Also some increased leg and ankle swelling. Denies palpitations, cough, wheezing, abd pain, diarrhea, dysuria. In the ED trop neg x2. EKG without ST changes. Denied current chest pain. COVID negative. Discharge Providers Provider Date of admission: 04/19/23 14:44 Discharge Date: 04/20/23 Primary care physician: Froylan Hanna DO Consults: 04/19/23 15:14 Consult to Dietitian, Adult Routine Comment: Reason For Exam: untreated diabetes Discharge provider: Mj Soriano DO Summary Hospital Course Discharge Diagnosis: # typical chest pain -patient describes left-sided dull chest pressure both with exertion and at rest, radiating to jaw -has several cardiac risk factors including male, age 57, smoker, untreated diabetes, HTN and HLD -nuclear exercise stress test showed no definitive ischemia, cards recommended metoprolol, lasix and outpatient cardiology f/u -start ASA 81mg daily -trops neg x2, morning trop 0.040 -tele # exertional dyspnea due to HFpEF exacerbation -also orthopnea and PND -no history of heart failure, BNP 3580 with pedal edema and pleural effusion on chest x-ray -echo showed EF 50-55%, mild MR, mild , mild TR and pulm HTN with RVSP of 53 -given 60mg IV lasix in ED -continue lasix 40mg IV BID, diuresed off 5L -patient's dyspnea improved # untreated type 2 diabetes -patient not on diabetes medications even though he was diagnosed with this years ago -A1c 9.7% -dietitian consult -ACHS glucose checks -sliding scale insulin -placed on metformin 500mg BID on discharge # untreated HTN and HLD -BP elevated to 183/77, not on home BP meds -last LDL 180 in 2017, not on lipid therapy -started losartan 25mg daily and lipitor 40mg nightly # history of horseshoe kidney -Cr mildly elevated at 1.28, does not meet criteria for TIERRA -monitor # lumbar back pain s/p diskectomy -lidocaine patch # 40 pack year smoker with likely undiagnosed COPD -currently smokes 1/2 ppd -O2 sats low 90's on monitor at rest -O2 supplementation if O2 <90% -should have PCP referral for PFT's -duonebs PRN # daily marijuana use -smokes marijuana for his back pain Hospital Course: See above problem list. Time Spent with Patient Time spent: Greater than 30 minutes Exam Vital Signs (past 8 hours): - 04/20/23 08:00 04/20/23 07:00 Temperature 97.8 F Pulse Rate 82 Respiratory Rate 18 Blood Pressure 131/63 Pulse Oximetry 98 Oxygen Delivery Method Room Air Oxygen Flow Rate 0 Fraction of Inspired Oxygen 21 SaO2/FiO2 Ratio 447 Oxygen Delivery Method Room Air Oxygen Flow Rate 0 Narrative Exam Narrative: GEN: no acute distress HEENT: moist mucous membranes, PERRL NECK: trachea midline, no JVD CV: regular rate and rhythm, no murmurs PULM: faint rales, no wheezes or rhonchi ABD: soft, nontender, nondistended, no organomegaly EXT: warm and well perfused, 1+ edema of LE's to knees NEURO: awake, alert, oriented, no focal deficits Objective Labs 04/20/23 04:32 04/20/23 04:32 Labs: Laboratory Results - last 24 hr 04/19/23 04/19/23 04/19/23 09:43 09:43 09:43 WBC RBC Hgb Hct MCV MCH MCHC RDW Plt Count Neut % (Auto) Lymph % (Auto) [place] % (Auto) Eos % (Auto) Baso % (Auto) Neut # (Auto) Lymph # (Auto) [place] # (Auto) Eos # (Auto) Baso # (Auto) Sodium Potassium Chloride Carbon Dioxide BUN Creatinine Estimated GFR BUN/Creatinine Ratio Glucose Hgb A1c (Ref Lab) Estim Average Glucose Calcium Magnesium 1.7 Troponin I Triglycerides 191 H Cholesterol 226 H LDL Cholesterol, Calc 156 H HDL Cholesterol 32 L Procalcitonin TSH 2.19 Nasal Screen MRSA (PCR) 04/19/23 04/19/23 04/19/23 09:43 09:43 15:40 WBC RBC Hgb Hct MCV MCH MCHC RDW Plt Count Neut % (Auto) Lymph % (Auto) [place] % (Auto) Eos % (Auto) Baso % (Auto) Neut # (Auto) Lymph # (Auto) [place] # (Auto) Eos # (Auto) Baso # (Auto) Sodium Potassium Chloride Carbon Dioxide BUN Creatinine Estimated GFR BUN/Creatinine Ratio Glucose Hgb A1c (Ref Lab) 9.7 H Estim Average Glucose 232 Calcium Magnesium Troponin I Triglycerides Cholesterol LDL Cholesterol, Calc HDL Cholesterol Procalcitonin 0.04 TSH Nasal Screen MRSA (PCR) Not detected 04/20/23 04/20/23 04/20/23 04:32 04:32 04:32 WBC 9.5 RBC 4.56 Hgb 13.5 Hct 39.8 L MCV 87.3 MCH 29.7 MCHC 34.0 RDW 13.8 Plt Count 291 Neut % (Auto) 58.4 Lymph % (Auto) 27.0 [place] % (Auto) 7.2 Eos % (Auto) 6.2 H Baso % (Auto) 1.2 Neut # (Auto) 5600 Lymph # (Auto) 2600 [place] # (Auto) 700 Eos # (Auto) 600 H Baso # (Auto) 100 Sodium 138 Potassium 4.1 Chloride 103 Carbon Dioxide 27 BUN 20 Creatinine 1.20 Estimated GFR > 60 BUN/Creatinine Ratio 16.7 Glucose 143 H Hgb A1c (Ref Lab) Estim Average Glucose Calcium 9.3 Magnesium Troponin I 0.040 H Triglycerides Cholesterol LDL Cholesterol, Calc HDL Cholesterol Procalcitonin TSH Nasal Screen MRSA (PCR) [facility] Medical History Controlled type 2 diabetes mellitus (01/13/16) Hyperplastic colonic polyp (07/01/14) Nephrolithiasis Obesity (10/27/11) Prostate hypertrophy (04/24/14) Smoker (10/27/11) Surgical History Status post colonoscopy (06/27/14) Status post discectomy Family History Brother Hyperlipidemia Alcohol abuse Father Cancer of prostate CAD (coronary artery disease) Pacemaker Ulcer Mother Smoker CAD (coronary artery disease) Social History household members: spouse Smoking Status: Current every day smoker alcohol intake: current Discharge Plan Discharge Plan Patient Disposition: Home Provider Discharge Comment: You were admitted for chest pain and shortness of breath. You were found to be retaining fluid in your lungs and legs, and this improved substantially with diuretics (lasix). Your heart echo looked pretty good, with some increased pressures in your lungs likely from the fluid and a leaky aortic valve. Your stress test did not show any significant abnormalities, however your exercise capacity wasn't great and do to your body habitus the pictures were somewhat degraded. The loss prevention operations manager wants you to take all of the meds listed for your heart, and get a referral to see them in clinic from your PCP. I've sent 90 day supplies of everything, including metformin for your diabetes. Discharge orders & Medications Prescriptions: New aspirin 81 mg Tablet,Delayed Release (Dr/Ec) 81 mg PO DAILY Qty: 90 0RF atorvastatin 40 mg tablet 40 mg PO BEDTIME Qty: 90 0RF losartan 25 mg Tablet 25 mg PO DAILY Qty: 90 0RF metformin 500 mg tablet 500 mg PO BIDWMEAL Qty: 180 0RF metoprolol succinate 25 mg tablet extended release 24 hr 25 mg PO DAILY Qty: 90 0RF furosemide [Lasix] 40 mg tablet 40 mg PO DAILY Qty: 90 0RF Follow up/Referrals: Froylan Hanna DO [Primary Care Provider] - Visit Report/Discharge Packet Stand Alone Forms: Patient Portal/API, Stroke Signs & Symptoms Discharge Data Primary Care Provider: Froylan Hanna Attending Provider: Mj Soriano Admit Date/Time: 04/19/23 14:44 Discharges patient from system. Discharge Date/Time: 04/20/23 14:45 Quality VTE Deep Vein Thrombosis/Pulmonary Embolism Present on Admission: No
--- NOTE | 2023-04-21 09:28 | DI.NM.S_ITS ---
DATE OF SERVICE: 04/20/2023 PROCEDURE: Exercise treadmill stress and rest myocardial perfusion imaging with gating to assess ejection fraction and regional wall motion. ORDERING PROVIDER: Dr. Mj Soriano. INDICATIONS: The patient is a 57-year-old hypertensive, diabetic smoker who presents with dyspnea and atypical chest discomfort. CARDIAC STRESS: The patient was able to exercise for 5 minutes and 25 seconds on a standard Keo protocol suggesting moderate-severely reduced exercise capacity with an ALLIE of +34%, achieving 6.4 METS. He had a normal heart rate response to exercise, achieving a maximum heart rate of 169 bpm (105% of his predicted maximum). He had a mild hypertensive blood pressure response with a resting blood pressure of 128/78, increasing to a maximum of 210/90. He had no chest discomfort or other anginal symptoms. His resting ECG is normal and there are no significant ST-segment shifts with exercise. He developed short salvos of SVT, up to 7-8 beats, but remained asymptomatic. At 4 minutes and 25 seconds of exercise at a heart rate of 136 bpm, 27.5 millicuries of technetium-99m Myoview was injected and he was imaged 10 minutes later using a gated SPECT acquisition protocol. Earlier in the day while at rest, he had been injected with 9.6 millicuries of technetium-99m Myoview and was imaged 20 minutes later, again using a gated SPECT acquisition protocol. FINDINGS: 1. Raw data. There is moderate tracer uptake on the stress images and fairly poor uptake on the resting images. In addition, considerable motion is noted on the post-stress images that is corrected using a motion correction algorithm which itself can produce artifact. The lung/heart ratio is normal at 0.32 with a normal TID ratio of 0.95. 2. Quantitated gated SPECT: Post-stress ejection fraction is estimated at 54% without any focal wall motion abnormality and specifically the inferior wall has normal contractility. Resting ejection fraction was 62% with a similar contraction pattern. Left ventricular volumes are markedly increased with a resting end- diastolic volume of 317 mL. 3. Myocardial perfusion imaging: Post-stress supine images were of marginal quality but suggested a mild perfusion defect in the inferior wall in a pattern that would be consistent with diaphragmatic attenuation, supported in part by significant improvement on the prone images although a very slight perfusion defect remained present. The resting images are of fairly poor quality but suggest a similar perfusion pattern with perhaps slight improvement in the perfusion defect in the midportion of the inferior wall but this is nonspecific because of the reduced image quality. IMPRESSION: 1. Abnormal myocardial perfusion study but with mild, nonspecific evidence for myocardial ischemia. 2. Mild, predominantly fixed, but slightly reversible perfusion defect in the inferior wall that improves, although it does not completely resolve on the prone images. Given the absence of any wall motion abnormality in this distribution, this most likely reflects diaphragmatic attenuation artifact, although a small volume of ischemia cannot be entirely excluded. 3. Mildly reduced left ventricular systolic function but with markedly increased left ventricular volumes. 4. Moderate-severely reduced exercise capacity without angina or ECG evidence of ischemia. He had salvos of brief, self- limited atrial tachycardia. 5. Compared to the previous myocardial perfusion study of January 02, 2013, his exercise capacity has significantly diminished and his ejection fraction has decreased with the previous ejection fraction of 76% on the post-stress images, 62% on the resting images. Left ventricular volumes have significantly increased with a previous end-diastolic volume of 146 mL. Perfusion imaging appears quite similar, again with an inferior defect that nearly completely resolved on the prone images although a slight defect remained present but was predominantly fixed on the previous study as well. Shaheed Negron - GAURAV/devin/amy doc#: [id number]/job#: [id number] dd: 04/20/2023 13:08:00 dt: 04/20/2023 22:57:00 DICTATING /COPIES TO: Len Razo MD; Mj Soriano M.D. COPIES MNE: BRAULIO;
== END 2023-04-20 14:45 | disposition home or self-care (01) ==
LOC: ED 14:43 → AC 14:45 → ICU 15:10
PROVIDERS: Admitting Provider Student in an Organized Health Care Education/Training Program; Emergency Provider Emergency Medicine; PCP Family Medicine; Visit Provider Student in an Organized Health Care Education/Training Program
DX: R06.02 Shortness of breath (principal); E78.5 Hyperlipidemia, unspecified; I10 Essential (primary) hypertension; E11.9 Type 2 diabetes mellitus without complications; Z72.0 Tobacco use
CPT/HCPCS: 36415; 71045; 78452; 80048; 80053; 80061; 81003; 82962; 83036; 83605; 83735; 83880; 84145; 84443; 84484; 85025; 85610; 87635; 87797; 93005; 93010; 93017; 93306; 94640; 96365; 96372; 96375; 96376; 99285; C9803; G0378; A9502; J1644; J1815; J1940

== ENCOUNTER 2023-05-11 09:32 | Emergency (ER) | payer OTHER, MEDICAID, SELFPAY ==
[2023-04-19 14:54] VITALS: BMI 33.2
[2023-05-11] VITALS (10 sets, daily range): BP systolic 113–148; BP diastolic 56–67; PULSE 53–65; RESP 12–20; TEMP 36.4; O2SAT 94–98; BMI 32.5
--- NOTE | 2023-05-11 09:39 | DI.RAD.S_ITS ---
PROCEDURE: XR CHEST 1V INDICATIONS: chest pain TECHNIQUE: One view of the chest was acquired. COMPARISON: [facility], CR, XR CHEST 1V, 04/19/2023, 9:32. FINDINGS: Surgical changes and devices: None. Lungs and pleura: Lungs are clear. No pleural effusions or pneumothorax. Mediastinum: Mediastinal contours appear normal. Heart size is normal. Bones and chest wall: No suspicious bony lesions. Overlying soft tissues appear unremarkable. IMPRESSION: No evidence acute pulmonary process. Dictated by: Quincy Bliss M.D. on 05/11/2023 at 9:55 Approved by: Quincy Bliss M.D. on 05/11/2023 at 9:57
[2023-05-11] MEDS: ASPIRIN 81 MG CHEW TAB 324 MG PO (09:44)
[2023-05-11 09:47] LABS: Add Manual Diff / Slide Review NO; Basophils Absolute Auto 100 /uL (0-100); Basophils Percent Auto 1.2 % (0-2); Eosinophils Absolute Auto 400 /uL (0-450); Eosinophils Percent Auto 3.2 % (2-4); Hematocrit 37.5 % (41-53); Hemoglobin 12.6 g/dL (13.5-17.5); Lymphocytes Absolute Auto 2300 /uL (1100-4500); Lymphocytes Percent Auto 18.9 % (25-40); Mean Corpuscular HGB Conc 33.6 % (30-36); Mean Corpuscular Hemoglobin 29.2 PG (26-34); Mean Corpuscular Volume 86.9 fL (80-100); Monocytes Absolute Auto 600 /uL (0-900); Monocytes Percent Auto 5.3 % (3-14); Neutrophils Absolute Auto 8600 /uL (1500-7000); Neutrophils Percent Auto 71.4 % (50-75); Platelet Count 322 X10^3/uL (150-400); Red Blood Cell Count 4.31 X10^6/uL (4.5-5.9); Red Cell Distribution Width 13.7 % (11.6-14.8)
[2023-05-11 09:54] LABS: INR 1.1 (0.9-1.3); Prothrombin Time 12.3 SECONDS (10.1-12.7)
[2023-05-11 09:57] LABS: PTT Partial Thromboplastin Tim 35 SECONDS (26-36)
[2023-05-11 10:03] LABS: Alanine Aminotransferase 26 IU/L (<50); Albumin 4.4 g/dL (3.5-5.0); Albumin Globulin Ratio 1.2 (1.0-2.8); Alkaline Phosphatase 66 U/L (38-126); Aspartate Aminotransferase 24 IU/L (17-59); BUN Creatinine Ratio 20.9 (6-22); Bilirubin Total 0.4 mg/dL (0.2-1.3); Blood Urea Nitrogen 28 mg/dL (9-20); Calcium 9.4 mg/dL (8.4-10.2); Carbon Dioxide 27 mmol/L (22-32); Chloride 101 mmol/L (98-107); Creatine Kinase 74 U/L (55-170); Estimated Glomerular Filt Rate > 60 mL/min (>60); Globulin 3.7 g/dL (1.7-4.1); Glucose 165 mg/dL (70-100); HEMOLYSIS < 15 (0-50); Lipase 69 U/L (23-300); Sodium 138 mmol/L (137-145); Total Protein 8.1 g/dL (6.3-8.2)
[2023-05-11 10:14] LABS: Troponin I < 0.012 ng/mL (0.01-0.034)
[2023-05-11 11:22] LABS: NT-proBNP (BNP-Adult 18+) 2740 pg/mL (<125)
--- NOTE | 2023-05-11 11:23 | ED.CHESTPAIN ---
HPI - Chest Pain General Chief Complaint: Chest Pain Stated Complaint: heart issues Time Seen by Provider: 05/11/23 10:09 Source: patient Mode of arrival: Ambulatory Limitations: no limitations History of Present Illness HPI narrative: Patient returns here for continued shortness of breath worse with lying flat and walking and with intermittent sharp left chest pain. He was admitted here last month for CHF exacerbation. He was given echocardiogram and stress test were abnormal. He did follow up with his primary care and is scheduled for 1st cardiology appointment in [place] next Tuesday. However he continues to feel badly since being discharged from this hospital 1 month ago. He states the leg swelling is not as bad. He was given 90 day supply of medications which he states he has been taking as instructed. No recent illness of cough cold congestion fever chills. Related Data Previous Rx's Medication Instructions Recorded aspirin 81 mg tablet,delayed 81 mg PO DAILY #90 tabs 04/20/23 release atorvastatin 40 mg tablet 40 mg PO BEDTIME #90 tabs 04/20/23 furosemide 40 mg tablet (Lasix) 40 mg PO DAILY #90 tabs 04/20/23 losartan 25 mg tablet 25 mg PO DAILY #90 tabs 04/20/23 metformin 500 mg tablet 500 mg PO BIDWMEAL #180 tabs 04/20/23 metoprolol succinate 25 mg 25 mg PO DAILY #90 tabs 04/20/23 tablet,extended release 24 hr Allergies Allergy/AdvReac Type Severity Reaction Status Date / Time adhesive tape Allergy Mild ITCHY/RASH Verified 05/11/23 09:39 Penicillins Allergy Mild RASH Verified 05/11/23 09:39 hydrocodone AdvReac Nausea Verified 05/11/23 09:39 Review of Systems Review of Systems Narrative: GENERAL: negative chills, fatigue, malaise, fever, sweats. HEENT: negative sinus pain, ear pain, sore throat RESPIRATORY: Positive dyspnea, negative cough CARDIOVASCULAR: Positive chest pain, negative palpitations GASTROINTESTINAL: negative nausea, vomiting, abdominal pain : negative dysuria, frequency, hematuria MUSCULOSKELETAL: negative muscle or bony pain SKIN: negative rash, skin lesions NEUROLOGIC: negative weakness, numbness ROS Unobtainable: All systems reviewed & are unremarkable except as noted in HPI and below Patient History Medical History Controlled type 2 diabetes mellitus (01/13/16) Hyperplastic colonic polyp (07/01/14) Nephrolithiasis Obesity (10/27/11) Prostate hypertrophy (04/24/14) Smoker (10/27/11) Surgical History Status post colonoscopy (06/27/14) Status post discectomy Family History Brother Hyperlipidemia Alcohol abuse Father Cancer of prostate CAD (coronary artery disease) Pacemaker Ulcer Mother Smoker CAD (coronary artery disease) Social History household members: spouse Smoking Status: Former smoker alcohol intake: current Smoking Status: Former smoker tobacco type: cigarettes alcohol intake frequency: holidays/special occasions only Substance Use Type: marijuana Exam Narrative Exam Narrative: GENERAL: in no distress, not toxic not dyspneic HEAD: Normocephalic. EYES: Pupils equal round ENT: Mucous membranes moist. NECK: Trachea midline. CARDIOVASCULAR: Regular rate and rhythm without murmurs RESPIRATORY: Clear to auscultation. Breath sounds equal bilaterally. No wheezes, rales, or rhonchi. Speaking full sentences no respiratory distress GASTROINTESTINAL: Abdomen soft, non-tender EXTREMITIES: No gross deformities. 1+ mild bilateral ankle edema BACK: No flank tenderness. NEURO: AOx4. SKIN: Warm and dry PSYCH: Not anxious, is cooperative Initial Vital Signs Initial Vital Signs: Vital Signs Temperature 97.6 F 05/11/23 09:33 Pulse Rate 57 L 05/11/23 09:33 Respiratory Rate 15 05/11/23 09:33 Blood Pressure 148/67 H 05/11/23 09:33 Pulse Oximetry 97 05/11/23 09:33 Oxygen Delivery Method Room Air 05/11/23 09:33 Course Orders Ordered: Discontinued Medications Aspirin (Aspirin 81 Mg Chew Tab) 324 mg PO NOW ONE Stop: 05/11/23 09:40 Last Admin: 05/11/23 09:44 Dose: 324 mg Documented By: CTS Vital Signs Vital signs: Vital Signs - 8 hr 05/11/23 09:33 05/11/23 09:37 05/11/23 09:37 Temperature 97.6 F Pulse Rate 57 L 60 Respiratory Rate 15 Blood Pressure 148/67 H 148/67 H Pulse Oximetry 97 96 Oxygen Delivery Method Room Air 05/11/23 10:00 05/11/23 10:01 05/11/23 10:01 Temperature Pulse Rate 56 L 57 L Respiratory Rate 12 19 Blood Pressure 117/58 L Pulse Oximetry 95 95 Oxygen Delivery Method 05/11/23 10:30 05/11/23 10:31 05/11/23 10:31 Temperature Pulse Rate 53 L 56 L Respiratory Rate 12 14 Blood Pressure 120/56 L Pulse Oximetry 94 95 Oxygen Delivery Method 05/11/23 11:00 05/11/23 11:00 Temperature Pulse Rate 54 L Respiratory Rate 12 Blood Pressure 113/56 L Pulse Oximetry 97 Oxygen Delivery Method Room Air MDM - Chest Pain Lab Data 05/11/23 09:38 05/11/23 09:38 Labs: Lab Results 05/11/23 05/11/23 05/11/23 Range/Units 09:38 09:38 09:38 WBC 12.0 H (4.5-11.0) X10^3/uL RBC 4.31 L (4.5-5.9) X10^6/uL Hgb 12.6 L (13.5-17.5) g/dL Hct 37.5 L (41-53) % MCV 86.9 (80-100) fL MCH 29.2 (26-34) PG MCHC 33.6 (30-36) % RDW 13.7 (11.6-14.8) % Plt Count 322 (150-400) X10^3/uL Neut % (Auto) 71.4 (50-75) % Lymph % (Auto) 18.9 L (25-40) % [place] % (Auto) 5.3 (3-14) % Eos % (Auto) 3.2 (2-4) % Baso % (Auto) 1.2 (0-2) % Neut # (Auto) 8600 H (6083-5117) /uL Lymph # (Auto) 2300 (7261-5263) /uL [place] # (Auto) 600 (0-900) /uL Eos # (Auto) 400 (0-450) /uL Baso # (Auto) 100 (0-100) /uL PT 12.3 (10.1-12.7) SECONDS INR 1.1 (0.9-1.3) APTT 35 (26-36) SECONDS Sodium 138 (137-145) mmol/L Potassium 4.0 (3.4-5.1) mmol/L Chloride 101 (98-107) mmol/L Carbon Dioxide 27 (22-32) mmol/L BUN 28 H (9-20) mg/dL Creatinine 1.34 H (0.66-1.25) mg/dL Estimated GFR > 60 (>60) mL/min BUN/Creatinine Ratio 20.9 (6-22) Glucose 165 H (70-100) mg/dL Calcium 9.4 (8.4-10.2) mg/dL Magnesium 2.0 (1.6-2.3) mg/dL Total Bilirubin 0.4 (0.2-1.3) mg/dL AST 24 (17-59) IU/L ALT 26 (<50) IU/L Alkaline Phosphatase 66 (38-126) U/L Total Creatine Kinase 74 (55-170) U/L CK-MB (CK-2) TNP CK-MB (CK-2) Rel Index TNP Troponin I < 0.012 (0.01-0.034) ng/mL NT-Pro-B Natriuret Pep (<125) pg/mL Total Protein 8.1 (6.3-8.2) g/dL Albumin 4.4 (3.5-5.0) g/dL Globulin 3.7 (1.7-4.1) g/dL Albumin/Globulin Ratio 1.2 (1.0-2.8) Lipase 69 (23-300) U/L 05/11/23 05/11/23 Range/Units 09:38 11:35 WBC (4.5-11.0) X10^3/uL RBC (4.5-5.9) X10^6/uL Hgb (13.5-17.5) g/dL Hct (41-53) % MCV (80-100) fL MCH (26-34) PG MCHC (30-36) % RDW (11.6-14.8) % Plt Count (150-400) X10^3/uL Neut % (Auto) (50-75) % Lymph % (Auto) (25-40) % [place] % (Auto) (3-14) % Eos % (Auto) (2-4) % Baso % (Auto) (0-2) % Neut # (Auto) (8437-3542) /uL Lymph # (Auto) (4517-7279) /uL [place] # (Auto) (0-900) /uL Eos # (Auto) (0-450) /uL Baso # (Auto) (0-100) /uL PT (10.1-12.7) SECONDS INR (0.9-1.3) APTT (26-36) SECONDS Sodium (137-145) mmol/L Potassium (3.4-5.1) mmol/L Chloride (98-107) mmol/L Carbon Dioxide (22-32) mmol/L BUN (9-20) mg/dL Creatinine (0.66-1.25) mg/dL Estimated GFR (>60) mL/min BUN/Creatinine Ratio (6-22) Glucose (70-100) mg/dL Calcium (8.4-10.2) mg/dL Magnesium (1.6-2.3) mg/dL Total Bilirubin (0.2-1.3) mg/dL AST (17-59) IU/L ALT (<50) IU/L Alkaline Phosphatase (38-126) U/L Total Creatine Kinase (55-170) U/L CK-MB (CK-2) CK-MB (CK-2) Rel Index Troponin I < 0.012 (0.01-0.034) ng/mL NT-Pro-B Natriuret Pep 2740 H (<125) pg/mL Total Protein (6.3-8.2) g/dL Albumin (3.5-5.0) g/dL Globulin (1.7-4.1) g/dL Albumin/Globulin Ratio (1.0-2.8) Lipase (23-300) U/L Urine Dip Bedside Urine Glucose Negative Bedside Urine Bilirubin - Negative Bedside Urine Ketone - Negative Urine Specific [place] 1.010 Bedside Urine Occult Blood - Negative Bedside Urine pH 7.0 Bedside Urine Protein - Negative Bedside Urine Urobilinogen - Negative Bedside Urine Nitrite - Negative Bedside Urine Leukocytes - Negative Esterase Imaging Data Chest x-ray: Radiologist's Impression: [address] [id number] XRay Report Signed Patient: Shaheed Negron MR#: [id number] : 1965 Acct:[id number] Age/Sex: 57 / M Date of Service: 05/11/23 Loc: ED Accession Number: [id number] ?? Procedure: XR chest 1V Ordering Provider: Jhonny Clark MD PROCEDURE:? XR CHEST 1V ? INDICATIONS:? chest pain ? TECHNIQUE:? One view of the chest was acquired.? ? COMPARISON:? [facility], CR, XR CHEST 1V, 04/19/2023, 9:32. ? FINDINGS:? ? Surgical changes and devices:? None.? ? Lungs and pleura:? Lungs are clear.? No pleural effusions or pneumothorax.? ? Mediastinum:? Mediastinal contours appear normal.? Heart size is normal.? ? Bones and chest wall:? No suspicious bony lesions.? Overlying soft tissues appear unremarkable.? ? IMPRESSION:? No evidence acute pulmonary process. ? ? ? Dictated by: Quincy Bliss M.D. on 05/11/2023 at 9:55 ? ? Approved by: Quincy Bliss M.D. on 05/11/2023 at 9:57 ? [facility] Narrative Medical decision making narrative: Patient returns here for continued shortness of breath worse with lying flat and walking and with intermittent sharp left chest pain. He was admitted here last month for CHF exacerbation. He was given echocardiogram and stress test were abnormal. He did follow up with his primary care and is scheduled for 1st cardiology appointment in [place] next Tuesday. However he continues to feel badly since being discharged from this hospital 1 month ago. He states the leg swelling is not as bad. He was given 90 day supply of medications which he states he has been taking as instructed. No recent illness of cough cold congestion fever chills. After history and exam CBC CMP troponin BNP PT INR PTT chest x-ray EKG [facility] CC: Chest pain/dyspnea Complicating co-morbidities: Hypertension CHF Data collected from: Patient Medical records reviewed: Stress test April 21, 2023 and echocardiogram Differential considered: Includes but not limited to unstable angina unstable angina STEMI non-STEMI CHF exacerbation Exam documented above, pertinent findings include: 1+ pedal edema Lab Test results independently reviewed as above. Pertinent findings: WBC 12.0 hemoglobin 12.6 hematocrit 37 sodium 138 potassium 4.0 BUN 28 creatinine 1.3 GFR greater than 60 troponin less than 0.012 BNP 2740 Independently reviewed EKG sinus rhythm rate [address] elevation or depression Imaging studies independently reviewed: Chest x-ray no acute findings Consultations: 1:30 p.m., I spoke with cardiology dr howard, recommends patient to be transferred for heart catheterization. Treatments: Aspirin Re-evaluations: 1:45 p.m.. I spoke with patient recommendations by Cardiology. He does not want to stay. He understands risk of leaving against medical advice includes but not limited to heart attack loss of limb or life or organs. I employed for him to stay. It would not. He is awake alert oriented x4. Discussion: Patient has decide to leave against medical advice. I employed with him to stay he would not. Please see notes above. Diagnosis: Chest pain Discharge Plan Departure Patient Disposition: Left Against Medical Advice Clinical Impression: Chest pain Activity Restrictions/Additional Instructions: Return immediately if you change your mind for further treatment and heart catheterization Prescriptions: No Action aspirin 81 mg Tablet,Delayed Release (Dr/Ec) 81 mg PO DAILY Qty: 90 0RF atorvastatin 40 mg tablet 40 mg PO BEDTIME Qty: 90 0RF losartan 25 mg Tablet 25 mg PO DAILY Qty: 90 0RF metformin 500 mg tablet 500 mg PO BIDWMEAL Qty: 180 0RF metoprolol succinate 25 mg tablet extended release 24 hr 25 mg PO DAILY Qty: 90 0RF furosemide [Lasix] 40 mg tablet 40 mg PO DAILY Qty: 90 0RF Stand Alone Forms: Against Medical Advice
[2023-05-11 12:06] LABS: Troponin I < 0.012 ng/mL (0.01-0.034)
== END 2023-05-11 14:21 | disposition left against medical advice (07) ==
PROVIDERS: Emergency Provider Emergency Medicine; PCP Family Medicine
DX: R07.9 Chest pain, unspecified (principal); R06.02 Shortness of breath; I10 Essential (primary) hypertension
CPT/HCPCS: 36415; 71045; 80053; 81003; 82550; 83690; 83735; 83880; 84484; 85025; 85610; 85730; 93005; 99284

== ENCOUNTER → 2024-02-08 09:42 | Outpatient (CLI) | payer OTHER, MEDICAID, SELFPAY ==
[2023-04-19 14:54] VITALS: BMI 33.2
[2024-02-08 11:02] LABS: Add Manual Diff / Slide Review NO; Basophils Absolute Auto 100 /uL (0-100); Basophils Percent Auto 0.8 % (0-2); Eosinophils Absolute Auto 400 /uL (0-450); Eosinophils Percent Auto 4.7 % (2-4); Hematocrit 40.3 % (41-53); Hemoglobin 13.7 g/dL (13.5-17.5); Lymphocytes Absolute Auto 2400 /uL (1100-4500); Lymphocytes Percent Auto 28.9 % (25-40); Mean Corpuscular Volume 88.3 fL (80-100); Monocytes Absolute Auto 700 /uL (0-900); Monocytes Percent Auto 8.4 % (3-14); Neutrophils Absolute Auto 4700 /uL (1500-7000); Neutrophils Percent Auto 57.2 % (50-75); Platelet Count 274 X10^3/uL (150-400); Red Blood Cell Count 4.56 X10^6/uL (4.5-5.9); Red Cell Distribution Width 14.6 % (11.6-14.8); White Blood Cell Count 8.2 X10^3/uL (4.5-11.0)
[2024-02-08 11:37] LABS: Alanine Aminotransferase 15 IU/L (<50); Albumin 3.9 g/dL (3.5-5.0); Albumin Globulin Ratio 1.1 (1.0-2.8); Alkaline Phosphatase 60 U/L (38-126); Aspartate Aminotransferase 23 IU/L (17-59); BUN Creatinine Ratio 13.7 (6-22); Bilirubin Total 0.4 mg/dL (0.2-1.3); Blood Urea Nitrogen 16 mg/dL (9-20); Carbon Dioxide 29 mmol/L (22-32); Chloride 108 mmol/L (98-107); Cholesterol 147 mg/dL (140-199); Estimated Glomerular Filt Rate > 60 mL/min (>60); Globulin 3.5 g/dL (1.7-4.1); Glucose 101 mg/dL (80-110); HDL Cholesterol 40 mg/dL (40-60); HEMOLYSIS < 15 (0-50); LDL Cholesterol Calculated 74 mg/dL (<100); Potassium 4.5 mmol/L (3.4-5.1); Sodium 139 mmol/L (137-145); Total Protein 7.4 g/dL (6.3-8.2); Triglycerides 167 mg/dL (35-150)
[2024-02-08 11:38] LABS: NT-proBNP (BNP-Adult 18+) 817 pg/mL (<125)
== END ==
LOC: LAB 09:44
PROVIDERS: PCP Family Medicine; Referring Provider Nurse Practitioner; Visit Provider Nurse Practitioner
DX: R06.9 Unspecified abnormalities of breathing (principal); E78.5 Hyperlipidemia, unspecified; I50.32 Chronic diastolic (congestive) heart failure
CPT/HCPCS: 36415; 80053; 80061; 83880; 85025

== ENCOUNTER 2024-09-04 20:21 | Emergency (ER) | payer OTHER, SELFPAY ==
[2023-04-19 14:54] VITALS: BMI 33.2
[2024-09-04] VITALS (8 sets, daily range): BP systolic 119–139; BP diastolic 55–62; PULSE 55–60; RESP 12–24; TEMP 36.5; O2SAT 92–96; BMI 30.8
--- NOTE | 2024-09-04 20:41 | DI.RAD.S_ITS ---
PROCEDURE: XR CHEST 1V INDICATIONS: chest pain TECHNIQUE: One view of the chest was acquired. COMPARISON: [facility], CR, XR CHEST 1V, 05/11/2023, 9:37. [facility], CR, XR CHEST 1V, 04/19/2023, 9:32. FINDINGS: Surgical changes and devices: None. Lungs and pleura: Lungs are clear. No pleural effusions or pneumothorax. Mediastinum: Mediastinal contours appear normal. Heart size is normal. Bones and chest wall: No suspicious bony lesions. Overlying soft tissues appear unremarkable. IMPRESSION: No acute cardiopulmonary abnormality is seen. Dictated by: Axel Cameron M.D. on 09/04/2024 at 21:09 Approved by: Axel Cameron M.D. on 09/04/2024 at 21:10
--- NOTE | 2024-09-04 20:47 | EKG_ITS ---
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
[2024-09-04] MEDS: ASPIRIN 81 MG CHEW TAB 324 MG PO (20:48)
[2024-09-04 21:06] LABS: Add Manual Diff / Slide Review NO; Basophils Absolute Auto 100 /uL (0-100); Basophils Percent Auto 1.3 % (0-2); Eosinophils Absolute Auto 600 /uL (0-450); Eosinophils Percent Auto 6.2 % (2-4); Hematocrit 37.7 % (41-53); Hemoglobin 12.9 g/dL (13.5-17.5); Lymphocytes Absolute Auto 2700 /uL (1100-4500); Lymphocytes Percent Auto 28.9 % (25-40); Mean Corpuscular HGB Conc 34.3 % (30-36); Mean Corpuscular Hemoglobin 30.9 PG (26-34); Monocytes Absolute Auto 800 /uL (0-900); Monocytes Percent Auto 8.5 % (3-14); Neutrophils Absolute Auto 5200 /uL (1500-7000); Neutrophils Percent Auto 55.1 % (50-75); Platelet Count 305 X10^3/uL (150-400); Red Blood Cell Count 4.18 X10^6/uL (4.5-5.9); Red Cell Distribution Width 13.7 % (11.6-14.8); White Blood Cell Count 9.5 X10^3/uL (4.5-11.0)
[2024-09-04 21:21] LABS: INR 1.1 (0.9-1.3); Prothrombin Time 12.2 SECONDS (9.4-12.5)
[2024-09-04 21:23] LABS: PTT Partial Thromboplastin Tim 39 SECONDS (25.1-36.5)
[2024-09-04 21:25] LABS: Alanine Aminotransferase 20 IU/L (<50); Albumin 4.5 g/dL (3.5-5.0); Albumin Globulin Ratio 1.4 (1.0-2.8); Alkaline Phosphatase 66 U/L (38-126); Aspartate Aminotransferase 24 IU/L (17-59); BUN Creatinine Ratio 17.1 (6-22); Bilirubin Total 0.4 mg/dL (0.2-1.3); Blood Urea Nitrogen 25 mg/dL (9-20); Calcium 9.6 mg/dL (8.4-10.2); Carbon Dioxide 31 mmol/L (22-32); Chloride 100 mmol/L (98-107); Creatine Kinase 171 U/L (55-170); Estimated Glomerular Filt Rate 55 mL/min (>60); Globulin 3.3 g/dL (1.7-4.1); Glucose 150 mg/dL (80-110); HEMOLYSIS < 15 (0-50); Lipase 89 U/L (23-300); Potassium 3.8 mmol/L (3.4-5.1); Sodium 139 mmol/L (137-145); Total Protein 7.8 g/dL (6.3-8.2)
[2024-09-04 21:37] LABS: NT-proBNP (BNP-Adult 18+) 859 pg/mL (<125); Troponin I 0.024 ng/mL (0.01-0.034)
[2024-09-04 23:37] LABS: Troponin I 0.024 ng/mL (0.01-0.034)
[2024-09-05] VITALS: BP 128/57; PULSE 58; RESP 19; O2SAT 94
[2024-09-05 00:30] VITALS: BP 120/53; PULSE 54; RESP 21; O2SAT 94
[2024-09-05 01:00] VITALS: BP 114/58; PULSE 52; RESP 20; O2SAT 94
--- NOTE | 2024-09-05 01:17 | ED_ITS ---
HPI - Chest Pain General Chief Complaint: Chest Pain Stated Complaint: heart issues Time Seen by Provider: 09/05/24 01:09 Source: patient, RN notes reviewed and old records reviewed Mode of arrival: Ambulatory Limitations: no limitations History of Present Illness HPI narrative: 58-year-old male history of hypertension, dyslipidemia on aspirin daily. Patient presents with complaint sudden onset epigastric pain radiated to his back states it has since resolved. He states he did get sweaty, denies any radiation up into his chest neck or arms. None down further into his belly. Denies any shortness of breath. He had some nausea and vomiting with it. No syncope or lightheadedness. No issues with bowel movements, no urinary issues. No new swelling in extremities. Patient states he has had prior stress test but had no cardiac stents. He is on aspirin, metoprolol, atorvastatin, valsartan, betamethasone, cyclobenzaprine, magnesium and vitamin D3. States he has had prior back surgery surgery for nephrolithiasis has had a prior episode of AFib. Former tobacco user, occasional alcohol, uses marijuana regularly, no IV or recreational drugs otherwise. Follows with Cardiology, Kortney Watson through [facility]. Related Data Previous Rx's Medication Instructions Recorded aspirin 81 mg tablet,delayed 81 mg PO DAILY #90 tabs 04/20/23 release atorvastatin 40 mg tablet 40 mg PO BEDTIME #90 tabs 04/20/23 furosemide 40 mg tablet (Lasix) 40 mg PO DAILY #90 tabs 04/20/23 losartan 25 mg tablet 25 mg PO DAILY #90 tabs 04/20/23 metformin 500 mg tablet 500 mg PO BIDWMEAL #180 tabs 04/20/23 metoprolol succinate 25 mg 25 mg PO DAILY #90 tabs 04/20/23 tablet,extended release 24 hr Allergies Allergy/AdvReac Type Severity Reaction Status Date / Time adhesive tape Allergy Mild ITCHY/RASH Verified 09/04/24 20:34 Penicillins Allergy Mild RASH Verified 09/04/24 20:34 hydrocodone AdvReac Nausea Verified 09/04/24 20:34 Review of Systems Review of Systems ROS Unobtainable: All systems reviewed & are unremarkable except as noted in HPI and below Patient History Medical History Smoker (10/27/11) Obesity (10/27/11) Controlled type 2 diabetes mellitus (01/13/16) Hyperplastic colonic polyp (07/01/14) Prostate hypertrophy (04/24/14) Nephrolithiasis Surgical History Status post colonoscopy (06/27/14) Status post discectomy Family History Brother Hyperlipidemia Alcohol abuse Father Cancer of prostate CAD (coronary artery disease) Pacemaker Ulcer Mother Smoker CAD (coronary artery disease) Social History household members: spouse Smoking Status: Former smoker alcohol intake: current Smoking Status: Former smoker tobacco type: cigarettes and vaping alcohol intake frequency: holidays/special occasions only Substance Use Type: marijuana Exam Narrative Exam Narrative: GENERAL: Alert and oriented x three, male in mild distress. HEENT: Head normocephalic, atraumatic, EOMI, pupils reactive, face symmetric, moist mucous membranes NECK: Supple, full range of motion CARDIOVASCULAR: Regular rate and rhythm without murmurs, rubs or gallops. No edema. No JVD. RESPIRATORY: Breath sounds equal bilaterally, no wheezes rales or rhonchi. No tachypnea, no accessory muscle use ABDOMEN: Soft, nontender. Normoactive bowel sounds all 4 quadrants. No guarding or rebound, rigidity, no mass, no bruit or pulsatile mass. : No CVA tenderness EXTREMITIES: Normal range of motion, no clubbing or edema. Neurovascularly intact. 2+ pulses bilateral lower extremities. NEUROLOGICAL: Cranial nerves II through XII grossly intact. Moving all extremities SKIN: Warm, dry, no petechiae, no rashes or lesions. Initial Vital Signs Initial Vital Signs: Vital Signs Temperature 97.7 F 09/04/24 20:30 Pulse Rate 60 09/04/24 20:30 Respiratory Rate 12 09/04/24 20:30 Blood Pressure 139/60 09/04/24 20:30 Pulse Oximetry 96 09/04/24 20:30 Oxygen Delivery Method Room Air 09/04/24 20:30 Course Orders Ordered: ED Orders 09/04/24 20:41 XR chest 1V Stat EKG-12 Lead Stat 09/04/24 20:55 Complete Blood Count AUTO DIFF Stat Comprehensive Metabolic Panel Stat Lipase Stat Magnesium Stat NT-proBNP (BNP-Adult 18+) Stat PTT Partial Thromboplastin [place] Stat Prothrombin Time INR Stat Troponin & CK Cardiac Panel Stat 09/04/24 23:00 Trop I [Troponin I] Stat Discontinued Medications Aspirin (Aspirin 81 Mg Chew Tab) 324 mg PO NOW ONE Stop: 09/04/24 20:42 Last Admin: 09/04/24 20:48 Dose: 243 mg Documented By: YANIQUE Vital Signs Vital signs: Vital Signs - 8 hr 09/04/24 20:30 09/04/24 22:26 09/04/24 22:27 Temperature 97.7 F Pulse Rate 60 57 L 55 L Respiratory Rate 12 24 22 Blood Pressure 139/60 Pulse Oximetry 96 96 95 Oxygen Delivery Method Room Air 09/04/24 22:27 09/04/24 22:30 09/04/24 22:30 Temperature Pulse Rate 55 L Respiratory Rate 19 Blood Pressure 129/56 L 124/58 L Pulse Oximetry 93 Oxygen Delivery Method 09/04/24 23:00 09/04/24 23:01 09/04/24 23:01 Temperature Pulse Rate 55 L 57 L Respiratory Rate 19 22 Blood Pressure 119/55 L Pulse Oximetry 94 94 Oxygen Delivery Method 09/04/24 23:30 09/04/24 23:31 09/04/24 23:31 Temperature Pulse Rate 57 L 57 L Respiratory Rate 19 18 Blood Pressure 139/62 Pulse Oximetry 92 92 Oxygen Delivery Method 09/05/24 00:00 09/05/24 00:00 09/05/24 00:30 Temperature Pulse Rate 58 L 54 L Respiratory Rate 19 21 Blood Pressure 128/57 L Pulse Oximetry 94 94 Oxygen Delivery Method 09/05/24 00:30 09/05/24 01:00 09/05/24 01:00 Temperature Pulse Rate 52 L Respiratory Rate 20 Blood Pressure 120/53 L 114/58 L Pulse Oximetry 94 Oxygen Delivery Method 09/05/24 01:49 Temperature 97.7 F Pulse Rate Respiratory Rate Blood Pressure Pulse Oximetry Oxygen Delivery Method Room Air MDM - Chest Pain Lab Data 09/04/24 20:55 09/04/24 20:55 Labs: Lab Results 09/04/24 09/04/24 Range/Units 20:55 23:00 WBC 9.5 (4.5-11.0) X10^3/uL RBC 4.18 L (4.5-5.9) X10^6/uL Hgb 12.9 L (13.5-17.5) g/dL Hct 37.7 L (41-53) % MCV 90.0 (80-100) fL MCH 30.9 (26-34) PG MCHC 34.3 (30-36) % RDW 13.7 (11.6-14.8) % Plt Count 305 (150-400) X10^3/uL Neut % (Auto) 55.1 (50-75) % Lymph % (Auto) 28.9 (25-40) % [place] % (Auto) 8.5 (3-14) % Eos % (Auto) 6.2 H (2-4) % Baso % (Auto) 1.3 (0-2) % Neut # (Auto) 5200 (7876-3836) /uL Lymph # (Auto) 2700 (7051-0887) /uL [place] # (Auto) 800 (0-900) /uL Eos # (Auto) 600 H (0-450) /uL Baso # (Auto) 100 (0-100) /uL PT 12.2 (9.4-12.5) SECONDS INR 1.1 (0.9-1.3) APTT 39 H (25.1-36.5) SECONDS Sodium 139 (137-145) mmol/L Potassium 3.8 (3.4-5.1) mmol/L Chloride 100 (98-107) mmol/L Carbon Dioxide 31 (22-32) mmol/L BUN 25 H (9-20) mg/dL Creatinine 1.46 H (0.66-1.25) mg/dL Estimated GFR 55 L (>60) mL/min BUN/Creatinine Ratio 17.1 (6-22) Glucose 150 H (80-110) mg/dL Calcium 9.6 (8.4-10.2) mg/dL Magnesium 2.0 (1.6-2.3) mg/dL Total Bilirubin 0.4 (0.2-1.3) mg/dL AST 24 (17-59) IU/L ALT 20 (<50) IU/L Alkaline Phosphatase 66 (38-126) U/L Total Creatine Kinase 171 H (55-170) U/L Troponin I 0.024 0.024 (0.01-0.034) ng/mL NT-Pro-B Natriuret Pep 859 H (<125) pg/mL Total Protein 7.8 (6.3-8.2) g/dL Albumin 4.5 (3.5-5.0) g/dL Globulin 3.3 (1.7-4.1) g/dL Albumin/Globulin Ratio 1.4 (1.0-2.8) Lipase 89 (23-300) U/L Imaging Data Chest x-ray: Radiologist's Impression: Shaheed Negron??58??M??1965 ? Allergy/Adv: adhesive tape, Penicillins, hydrocodone (More??) Close Chest X-Ray (Signed) Axel Cameron - 09/04/24 Chest X-Ray (Signed) Quincy Bliss - 05/11/23 Radiology Report (Cancelled) Len Razo - 04/21/23 Myocardial Perfusion Scan Nuc Med (Signed) Len Razo - 04/21/23 Echocardiogram Ultrasound (Signed) Arina Mac - 04/19/23 Telemetry Strips 04/19/23 Chest X-Ray (Signed) Giovanni Tejada - 04/19/23 Renal Ultrasound (Signed) David Mcintyre - 12/17/21 Abdomen Ultrasound (Signed) Austyn Boucher - 11/08/21 Telemetry Strips 11/08/21 Abdomen/Pelvis CT (Signed) Ludmila Shaw - 11/08/21 Chest X-Ray (Signed) Ludmila Shaw - 11/07/21 Abdomen/Pelvis CT (Signed) Mona Augustine - 07/01/21 Chest X-Ray (Signed) Lisa Steel - 10/17/19 [facility]?[address] [address] XRay Report Signed Patient: Shaheed Negron MR#: [id number] : 1965 Acct:[id number] Age/Sex: 58 / M Date of Service: 09/04/24 Loc: ED Accession Number: [id number] Procedure: XR chest 1V Ordering Provider: Marla Ortiz D.O. PROCEDURE: XR CHEST 1V INDICATIONS: chest pain TECHNIQUE: One view of the chest was acquired. COMPARISON: [facility], CR, XR CHEST 1V, 05/11/2023, 9:37. [facility], CR, XR CHEST 1V, 04/19/2023, 9:32. FINDINGS: Surgical changes and devices: None. Lungs and pleura: Lungs are clear. No pleural effusions or pneumothorax. Mediastinum: Mediastinal contours appear normal. Heart size is normal. Bones and chest wall: No suspicious bony lesions. Overlying soft tissues appear unremarkable. IMPRESSION: No acute cardiopulmonary abnormality is seen. Dictated by: Axel Cameron M.D. on 09/04/2024 at 21:09 Approved by: Axel Cameron M.D. on 09/04/2024 at 21:10 ECG Data Attestation: I personally reviewed and interpreted this ECG as follows: Interpretation: Sinus rhythm with a premature atrial complex rate of 60 [place] 198 QRS of 108 QTC of 490, no acute ST elevation appreciated change. MDM Narrative Medical decision making narrative: 58-year-old male with episode of epigastric pain did radiate to his back resolved has had no additional episodes did not radiate anywhere else. Chest x-ray shows no acute change EKG shows sinus rhythm with premature atrial complex. Appears similar to prior from 05/11/2023. Labs show white count 9.5 hemoglobin of 12.9 platelets of 305. Coags are negative, creatinine 1.46 was 1.17 in January of 2024 has been elevated at 1.34 in April 2023. Patient's BUN 25 sodium is 139 potassium 3.8 chloride 100 CO2 is 31 glucose is 150 LFTs are negative total CK is 171 troponins 0.024 with a repeat troponin being 0.024 and a BNP of 859 consistent with prior in January and was elevated at 27 40 in April 2023. Lipase is 89. Discussed with patient he feels improved, did have aspirin here in the department but no other interventions. Plan for patient to follow up with Cardiology for recheck and further workup as needed. Patient had patient has testing but was after he developed atrial fibrillation while having treatment for kidney stones. 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 Continue your home medications as prescribed. Please return for recurrent symptoms, new chest pain or abdominal or back or flank pain, fevers, persistent vomiting, diaphoresis or sweatiness, new swelling of your extremities, black or bloody stools or other new or concerning changes. Prescriptions: No Action aspirin 81 mg Tablet,Delayed Release (Dr/Ec) 81 mg PO DAILY Qty: 90 0RF atorvastatin 40 mg tablet 40 mg PO BEDTIME Qty: 90 0RF losartan 25 mg Tablet 25 mg PO DAILY Qty: 90 0RF metformin 500 mg tablet 500 mg PO BIDWMEAL Qty: 180 0RF metoprolol succinate 25 mg tablet extended release 24 hr 25 mg PO DAILY Qty: 90 0RF furosemide [Lasix] 40 mg tablet 40 mg PO DAILY Qty: 90 0RF Referrals: Froylan Hanna DO [Primary Care Provider] - Stand Alone Forms: Patient Portal/API
[2024-09-05 01:49] VITALS: TEMP 36.5
== END 2024-09-05 01:51 | disposition home or self-care (01) ==
PROVIDERS: Emergency Provider Emergency Medicine; PCP Family Medicine
DX: R10.13 Epigastric pain (principal); R07.9 Chest pain, unspecified
CPT/HCPCS: 36415; 71045; 80053; 82550; 83690; 83735; 83880; 84484; 85025; 85610; 85730; 93005; 99284